=== PATIENT | female | born 1980 | race Caucasian/White ===

== ENCOUNTER 2018-01-29 14:29 | Inpatient (IN) | payer BC ==
[~2018-01-29] VITALS: Ht 157.5 cm; Wt 121.2 kg
[~2018-01-29 14:29] MED LIST: CHLO25 PO; Librium25 MG PO; PRED10 PO; THIA100 PO; Zofran4 MG PO
[2018-01-29 15:17] LABS: Hematocrit 35.6 % (33.0-51.0); Hemoglobin 11.7 g/dL (11.5-16.0); Mean Corpuscular HGB 35.3 pg (26.0-34.0); Mean Corpuscular HGB Conc 32.9 g/dL (31.5-36.5); Mean Corpuscular Volume 108 fL (80-100); Mean Platelet Volume 11.1 fL (9.1-12.4); NRBC ABSOLUTE 0.19 K/mm3 (0.00-0.02); NRBC Auto 0.7 /100 WBC (0.0-0.2); Platelet Count 270 K/mm3 (150-400); RDW Coefficient Variation 18.3 % (11.7-14.2); Red Blood Cell Count 3.31 M/mm3 (3.80-5.20); White Blood Cell Count 28.23 K/mm3 (4.00-11.30)
[2018-01-29 15:49] LABS: BAND PERCENT MAN 14 % (0-8); BASOPHILS PERCENT MAN 0 % (0-2); EOSINOPHILS ABSOLUTE MAN 0.28 K/mm3 (0.00-0.68); EOSINOPHILS PERCENT MAN 1 % (0-6); LYMPHOCYTES ABSOLUTE MAN 1.97 K/mm3 (0.84-5.20); LYMPHOCYTES PERCENT MAN 7 % (21-46); METAMYELOCYTE ABSOLUTE MAN 0.28 K/mm3 (0.00-0.00); METAMYELOCYTE PERCENT MAN 1 % (0-0); MONOCYTES ABSOLUTE MAN 1.97 K/mm3 (0.16-1.47); MONOCYTES PERCENT MAN 7 % (4-13); MYELOCYTE ABSOLUTE MAN 0.28 K/mm3 (0.00-0.00); MYELOCYTE PERCENT MAN 1 % (0-0); NEUTROPHILS ABSOLUTE MAN 23.43 K/mm3 (1.96-9.15); SEG NEUTROPHILS PERCENT MAN 69 % (41-73); TOTAL CELLS COUNTED 100
[2018-01-29 15:51] LABS: Albumin, Blood 1.6 g/dL (3.4-5.0); Albumin/Globulin Ratio 0.3 (0.8-1.8); Bilirubin, Total 10.9 mg/dL (0.1-1.0); Bun/Creatinine Ratio 14.2 (12.0-20.0); Calcium, Blood 8.4 mg/dL (8.5-10.1); Creatinine, Blood 3.95 mg/dL (0.40-1.00); Globulin, Blood 6.1 g/dL (2.2-4.0); Potassium, Blood 5.4 mmol/L (3.5-5.5); Total Protein, Blood 7.7 g/dL (6.4-8.2)
[2018-01-29 18:20] LABS: Ethanol (Alcohol), Blood, Med <3 mg/dL
[2018-01-29 18:25] LABS: Acetaminophen, Random <2.0 ug/mL (10.0-30.0); Salicylate <1.7 mg/dL (2.8-20.0)
[2018-01-29 18:31] LABS: International Normalized Ratio 1.75; Prothrombin Time Results 17.5 Sec (9.7-11.5)
[2018-01-29 19:38] LABS: Source, Urine Clean Catch
[2018-01-29 19:49] LABS: Appearance, Urine Cloudy (Clear); Bilirubin, Urine 3+ (Neg); Blood, Urine 3+ (Neg); Color, Urine Amber (P-Yellow); Glucose Qualitative, Urine Neg (Neg); Ketones, Urine 1+ (Neg); Leukocyte Esterase, Urine 1+ (Neg); Nitrite, Urine Pos (Neg); Protein, Urine 2+ (Neg); Urobilinogen, Urine 3+ (Normal)
[2018-01-29 19:51] LABS: Amorphous Mod (0-Heavy); Bacteria Few /hpf
[2018-01-29 19:54] LABS: Squamous Epithelial Cells Few /hpf (Few); Transitional Epithelial Cells Few /hpf (0-Rare)
[2018-01-29 19:55] LABS: U Amphetamine Screen Not Detected; U Barbituate Screen Not Detected; U Benzodiazapine Screen DETECTED; U Buprenorphine Screen Not Detected; U Cannabinoids Screen DETECTED; U Cocaine Screen Not Detected; U Methadone Screen Not Detected; U Methamphetamine Screen Not Detected; U Opiates Screen Not Detected; U Oxycodone Screen Not Detected; U Phencyclidine Screen Not Detected; U Propoxyphene Screen Not Detected
[2018-01-30 06:46] LABS: Hematocrit 28.7 % (33.0-51.0); Hemoglobin 9.3 g/dL (11.5-16.0); Mean Corpuscular HGB 34.8 pg (26.0-34.0); Mean Corpuscular HGB Conc 32.4 g/dL (31.5-36.5); Mean Corpuscular Volume 108 fL (80-100); Mean Platelet Volume 10.9 fL (9.1-12.4); NRBC ABSOLUTE 0.08 K/mm3 (0.00-0.02); NRBC Auto 0.3 /100 WBC (0.0-0.2); Platelet Count 204 K/mm3 (150-400); RDW Coefficient Variation 18.4 % (11.7-14.2); RDW Standard Deviation 70.5 fL (35.1-46.3); Red Blood Cell Count 2.67 M/mm3 (3.80-5.20); White Blood Cell Count 28.48 K/mm3 (4.00-11.30)
[2018-01-30 07:03] LABS: Albumin, Blood 1.3 g/dL (3.4-5.0); Albumin/Globulin Ratio 0.3 (0.8-1.8); Bilirubin, Total 8.9 mg/dL (0.1-1.0); Bun/Creatinine Ratio 14.3 (12.0-20.0); Calcium, Blood 7.1 mg/dL (8.5-10.1); Creatinine, Blood 3.91 mg/dL (0.40-1.00); Globulin, Blood 4.7 g/dL (2.2-4.0)
[2018-01-30 07:06] LABS: BAND PERCENT MAN 5 % (0-8); BASOPHILS ABSOLUTE MAN 0.28 K/mm3 (0.00-0.23); BASOPHILS PERCENT MAN 1 % (0-2); EOSINOPHILS PERCENT MAN 0 % (0-6); LYMPHOCYTES ABSOLUTE MAN 3.13 K/mm3 (0.84-5.20); LYMPHOCYTES PERCENT MAN 11 % (21-46); METAMYELOCYTE ABSOLUTE MAN 0.28 K/mm3 (0.00-0.00); METAMYELOCYTE PERCENT MAN 1 % (0-0); MONOCYTES ABSOLUTE MAN 1.13 K/mm3 (0.16-1.47); MONOCYTES PERCENT MAN 4 % (4-13); NEUTROPHILS ABSOLUTE MAN 23.63 K/mm3 (1.96-9.15); SEG NEUTROPHILS PERCENT MAN 78 % (41-73); TOTAL CELLS COUNTED 100
[2018-01-30 14:35] LABS: Stool Occult Blood Guaiac 1 Pos (Neg)
[2018-01-30 15:20] LABS: Hematocrit 29.6 % (33.0-51.0)
[2018-01-30 20:57] LABS: Hematocrit 19.6 % (33.0-51.0); Hemoglobin 6.4 g/dL (11.5-16.0); Mean Corpuscular HGB Conc 32.7 g/dL (31.5-36.5); Mean Corpuscular Volume 110 fL (80-100); Mean Platelet Volume 10.6 fL (9.1-12.4); NRBC ABSOLUTE 0.08 K/mm3 (0.00-0.02); NRBC Auto 0.3 /100 WBC (0.0-0.2); Platelet Count 199 K/mm3 (150-400); RDW Coefficient Variation 18.4 % (11.7-14.2); RDW Standard Deviation 72.3 fL (35.1-46.3); Red Blood Cell Count 1.78 M/mm3 (3.80-5.20); White Blood Cell Count 28.62 K/mm3 (4.00-11.30)
[2018-01-30 21:18] LABS: Bun/Creatinine Ratio 16.3 (12.0-20.0); Calcium, Blood 6.2 mg/dL (8.5-10.1); Creatinine, Blood 3.07 mg/dL (0.40-1.00); Potassium, Blood 4.7 mmol/L (3.5-5.5)
[2018-01-31 04:40] LABS: Hematocrit 29.2 % (33.0-51.0); Hemoglobin 9.5 g/dL (11.5-16.0); Mean Corpuscular HGB 34.9 pg (26.0-34.0); Mean Corpuscular HGB Conc 32.5 g/dL (31.5-36.5); Mean Platelet Volume 10.6 fL (9.1-12.4); NRBC Auto 0.3 /100 WBC (0.0-0.2); Platelet Count 202 K/mm3 (150-400); RDW Coefficient Variation 19.5 % (11.7-14.2); RDW Standard Deviation 74.6 fL (35.1-46.3); Red Blood Cell Count 2.72 M/mm3 (3.80-5.20); White Blood Cell Count 31.76 K/mm3 (4.00-11.30)
[2018-01-31 04:49] LABS: Mean Corpuscular Volume 107 fL (80-100)
[2018-01-31 04:59] LABS: Albumin/Globulin Ratio 0.5 (0.8-1.8); Bilirubin, Total 10.3 mg/dL (0.1-1.0); Bun/Creatinine Ratio 16.3 (12.0-20.0); Calcium, Blood 7.3 mg/dL (8.5-10.1); Creatinine, Blood 3.37 mg/dL (0.40-1.00); Globulin, Blood 4.4 g/dL (2.2-4.0); Magnesium, Blood 2.5 mg/dL (1.6-2.4); Potassium, Blood 5.2 mmol/L (3.5-5.5); Total Protein, Blood 6.4 g/dL (6.4-8.2)
[2018-01-31 05:54] LABS: BAND PERCENT MAN 10 % (0-8); BASOPHILS ABSOLUTE MAN 0.31 K/mm3 (0.00-0.23); BASOPHILS PERCENT MAN 1 % (0-2); EOSINOPHILS ABSOLUTE MAN 0.95 K/mm3 (0.00-0.68); EOSINOPHILS PERCENT MAN 3 % (0-6); METAMYELOCYTE ABSOLUTE MAN 0.63 K/mm3 (0.00-0.00); METAMYELOCYTE PERCENT MAN 2 % (0-0); MONOCYTES ABSOLUTE MAN 0.95 K/mm3 (0.16-1.47); MONOCYTES PERCENT MAN 3 % (4-13); MYELOCYTE ABSOLUTE MAN 0.95 K/mm3 (0.00-0.00); MYELOCYTE PERCENT MAN 3 % (0-0); NEUTROPHILS ABSOLUTE MAN 27.94 K/mm3 (1.96-9.15); SEG NEUTROPHILS PERCENT MAN 78 % (41-73); TOTAL CELLS COUNTED 100
[2018-01-31 08:16] LABS: HBSAG SCREEN Negative (Negative); HEP A AB, IGM Negative (Negative); HEP B CORE AB, IGM Negative (Negative); HEP C VIRUS AB <0.1 (0.0-0.9)
[2018-01-31 11:59] LABS: Hematocrit 29.1 % (33.0-51.0); Hemoglobin 9.4 g/dL (11.5-16.0)
[2018-02-01 03:42] LABS: Hematocrit 27.6 % (33.0-51.0); Mean Corpuscular HGB 35.3 pg (26.0-34.0); Mean Corpuscular HGB Conc 32.6 g/dL (31.5-36.5); Mean Corpuscular Volume 108 fL (80-100); Mean Platelet Volume 10.7 fL (9.1-12.4); NRBC ABSOLUTE 0.07 K/mm3 (0.00-0.02); NRBC Auto 0.2 /100 WBC (0.0-0.2); Platelet Count 172 K/mm3 (150-400); RDW Coefficient Variation 19.9 % (11.7-14.2); RDW Standard Deviation 77.1 fL (35.1-46.3); Red Blood Cell Count 2.55 M/mm3 (3.80-5.20); White Blood Cell Count 30.25 K/mm3 (4.00-11.30)
[2018-02-01 03:57] LABS: Albumin, Blood 2.3 g/dL (3.4-5.0); Anion Gap 13 mmol/L (6-16); Blood Urea Nitrogen 53 mg/dL (8-24); Bun/Creatinine Ratio 18.7 (12.0-20.0); CO2, Blood 18 mmol/L (21-32); Calcium, Blood 7.3 mg/dL (8.5-10.1); Chloride, Blood 103 mmol/L (98-108); Creatinine, Blood 2.83 mg/dL (0.40-1.00); Glomerular Filtration Rate 20 (60-); Glucose, Blood 107 mg/dL (70-99); Phosphorus, Blood 4.3 mg/dL (2.5-4.9); Potassium, Blood 4.6 mmol/L (3.5-5.5); Sodium, Blood 134 mmol/L (136-145)
[2018-02-01 04:41] LABS: BAND PERCENT MAN 14 % (0-8); BASOPHILS PERCENT MAN 0 % (0-2); EOSINOPHILS PERCENT MAN 0 % (0-6); LYMPHOCYTES ABSOLUTE MAN 1.81 K/mm3 (0.84-5.20); LYMPHOCYTES PERCENT MAN 6 % (21-46); METAMYELOCYTE PERCENT MAN 1 % (0-0); MONOCYTES ABSOLUTE MAN 1.51 K/mm3 (0.16-1.47); MONOCYTES PERCENT MAN 5 % (4-13); NEUTROPHILS ABSOLUTE MAN 26.62 K/mm3 (1.96-9.15); SEG NEUTROPHILS PERCENT MAN 74 % (41-73); TOTAL CELLS COUNTED 100
[2018-02-01 13:11] LABS: Hematocrit 27.8 % (33.0-51.0)
[2018-02-01 21:23] LABS: Hematocrit 27.4 % (33.0-51.0)
[2018-02-02 05:44] LABS: Hemoglobin 8.7 g/dL (11.5-16.0); Mean Corpuscular HGB 35.2 pg (26.0-34.0); Mean Corpuscular HGB Conc 32.2 g/dL (31.5-36.5); Mean Corpuscular Volume 109 fL (80-100); Mean Platelet Volume 10.8 fL (9.1-12.4); NRBC ABSOLUTE 0.04 K/mm3 (0.00-0.02); NRBC Auto 0.1 /100 WBC (0.0-0.2); Platelet Count 144 K/mm3 (150-400); RDW Coefficient Variation 19.8 % (11.7-14.2); RDW Standard Deviation 77.6 fL (35.1-46.3); Red Blood Cell Count 2.47 M/mm3 (3.80-5.20); White Blood Cell Count 29.23 K/mm3 (4.00-11.30)
[2018-02-02 06:04] LABS: BAND PERCENT MAN 2 % (0-8); BASOPHILS PERCENT MAN 0 % (0-2); EOSINOPHILS PERCENT MAN 0 % (0-6); LYMPHOCYTES ABSOLUTE MAN 3.21 K/mm3 (0.84-5.20); LYMPHOCYTES PERCENT MAN 11 % (21-46); MONOCYTES ABSOLUTE MAN 1.16 K/mm3 (0.16-1.47); MONOCYTES PERCENT MAN 4 % (4-13); NEUTROPHILS ABSOLUTE MAN 24.84 K/mm3 (1.96-9.15); SEG NEUTROPHILS PERCENT MAN 83 % (41-73); TOTAL CELLS COUNTED 100
[2018-02-02 06:11] LABS: Alanine Aminotransfer (ALT/SGP 44 U/L (12-78); Albumin, Blood 2.6 g/dL (3.4-5.0); Albumin/Globulin Ratio 0.6 (0.8-1.8); Alk Phos 225 U/L (50-136); Anion Gap 13 mmol/L (6-16); Aspartate Aminotrans (AST/SGOT 211 U/L (12-37); Bilirubin, Total 12.3 mg/dL (0.1-1.0); Blood Urea Nitrogen 54 mg/dL (8-24); Bun/Creatinine Ratio 22.5 (12.0-20.0); CO2, Blood 19 mmol/L (21-32); Calcium, Blood 7.6 mg/dL (8.5-10.1); Chloride, Blood 106 mmol/L (98-108); Globulin, Blood 4.1 g/dL (2.2-4.0); Glomerular Filtration Rate 24 (60-); Glucose, Blood 88 mg/dL (70-99); Magnesium, Blood 2.2 mg/dL (1.6-2.4); Phosphorus, Blood 4.6 mg/dL (2.5-4.9); Potassium, Blood 4.7 mmol/L (3.5-5.5); Sodium, Blood 138 mmol/L (136-145); Total Protein, Blood 6.7 g/dL (6.4-8.2)
[2018-02-02 11:25] LABS: PCO2 Arterial 49.6 mmHg (35-45); pH Blood Arterial 7.21 (7.35-7.45)
[2018-02-02 14:27] LABS: Base Excess Venous -5.7 mmol/L; Bicarbonate Venous 19.6 mmol/L (24.0-30.0)
[2018-02-02 14:29] LABS: PCO2 Venous 43.4 mmHg (38-42); pH Blood Venous 7.29 (7.34-7.37)
[2018-02-02 14:30] LABS: PO2 Venous 40.1 mmHg (38-42)
[2018-02-02 14:36] LABS: Hematocrit 26.9 % (33.0-51.0); Hemoglobin 8.6 g/dL (11.5-16.0)
[2018-02-02 20:17] LABS: Hematocrit 26.2 % (33.0-51.0); Hemoglobin 8.5 g/dL (11.5-16.0)
[2018-02-03 03:22] LABS: Base Excess Venous -6.5 mmol/L; Bicarbonate Venous 19.4 mmol/L (24.0-30.0); PCO2 Venous 37.2 mmHg (38-42); PO2 Venous 54.9 mmHg (38-42); pH Blood Venous 7.33 (7.34-7.37)
[2018-02-03 03:46] LABS: Hematocrit 26.5 % (33.0-51.0); Hemoglobin 8.7 g/dL (11.5-16.0); Mean Corpuscular HGB 35.4 pg (26.0-34.0); Mean Corpuscular HGB Conc 32.8 g/dL (31.5-36.5); Mean Corpuscular Volume 108 fL (80-100); Mean Platelet Volume 11.1 fL (9.1-12.4); NRBC ABSOLUTE 0.05 K/mm3 (0.00-0.02); NRBC Auto 0.2 /100 WBC (0.0-0.2); Platelet Count 154 K/mm3 (150-400); RDW Coefficient Variation 19.6 % (11.7-14.2); RDW Standard Deviation 75.8 fL (35.1-46.3); Red Blood Cell Count 2.46 M/mm3 (3.80-5.20); White Blood Cell Count 27.48 K/mm3 (4.00-11.30)
[2018-02-03 04:14] LABS: Albumin, Blood 2.6 g/dL (3.4-5.0); Albumin/Globulin Ratio 0.6 (0.8-1.8); Bilirubin, Total 13.9 mg/dL (0.1-1.0); Bun/Creatinine Ratio 26.8 (12.0-20.0); Calcium, Blood 8.1 mg/dL (8.5-10.1); Creatinine, Blood 2.2 mg/dL (0.40-1.00); Globulin, Blood 4.1 g/dL (2.2-4.0); Potassium, Blood 4.5 mmol/L (3.5-5.5); Total Protein, Blood 6.7 g/dL (6.4-8.2)
[2018-02-03 05:00] LABS: BAND PERCENT MAN 5 % (0-8); BASOPHILS PERCENT MAN 0 % (0-2); EOSINOPHILS PERCENT MAN 0 % (0-6); LYMPHOCYTES ABSOLUTE MAN 0.54 K/mm3 (0.84-5.20); LYMPHOCYTES PERCENT MAN 2 % (21-46); METAMYELOCYTE ABSOLUTE MAN 0.82 K/mm3 (0.00-0.00); METAMYELOCYTE PERCENT MAN 3 % (0-0); MONOCYTES ABSOLUTE MAN 1.09 K/mm3 (0.16-1.47); MONOCYTES PERCENT MAN 4 % (4-13); MYELOCYTE ABSOLUTE MAN 0.27 K/mm3 (0.00-0.00); MYELOCYTE PERCENT MAN 1 % (0-0); NEUTROPHILS ABSOLUTE MAN 24.73 K/mm3 (1.96-9.15); SEG NEUTROPHILS PERCENT MAN 85 % (41-73); TOTAL CELLS COUNTED 100
[2018-02-04 03:52] LABS: Hematocrit 28.2 % (33.0-51.0); Hemoglobin 8.8 g/dL (11.5-16.0); Mean Corpuscular HGB 35.3 pg (26.0-34.0); Mean Corpuscular HGB Conc 31.2 g/dL (31.5-36.5); NRBC ABSOLUTE 0.08 K/mm3 (0.00-0.02); NRBC Auto 0.2 /100 WBC (0.0-0.2); Platelet Count 182 K/mm3 (150-400); RDW Coefficient Variation 20.1 % (11.7-14.2); RDW Standard Deviation 82.8 fL (35.1-46.3); Red Blood Cell Count 2.49 M/mm3 (3.80-5.20); White Blood Cell Count 34.28 K/mm3 (4.00-11.30)
[2018-02-04 04:06] LABS: International Normalized Ratio 2.13
[2018-02-04 04:16] LABS: Mean Corpuscular Volume 113 fL (80-100)
[2018-02-04 04:27] LABS: Albumin, Blood 2.6 g/dL (3.4-5.0); Albumin/Globulin Ratio 0.6 (0.8-1.8); Bilirubin, Direct 12.3 mg/dL (0.0-0.3); Bilirubin, Total 15.3 mg/dL (0.1-1.0); Calcium, Blood 8.2 mg/dL (8.5-10.1); Globulin, Blood 4.5 g/dL (2.2-4.0); Potassium, Blood 4.9 mmol/L (3.5-5.5); Total Protein, Blood 7.1 g/dL (6.4-8.2)
[2018-02-04 04:55] LABS: BAND PERCENT MAN 6 % (0-8); BASOPHILS ABSOLUTE MAN 0.34 K/mm3 (0.00-0.23); BASOPHILS PERCENT MAN 1 % (0-2); EOSINOPHILS PERCENT MAN 0 % (0-6); LYMPHOCYTES ABSOLUTE MAN 2.39 K/mm3 (0.84-5.20); LYMPHOCYTES PERCENT MAN 7 % (21-46); METAMYELOCYTE ABSOLUTE MAN 0.68 K/mm3 (0.00-0.00); METAMYELOCYTE PERCENT MAN 2 % (0-0); MONOCYTES ABSOLUTE MAN 0.34 K/mm3 (0.16-1.47); MONOCYTES PERCENT MAN 1 % (4-13); MYELOCYTE ABSOLUTE MAN 0.68 K/mm3 (0.00-0.00); MYELOCYTE PERCENT MAN 2 % (0-0); NEUTROPHILS ABSOLUTE MAN 29.82 K/mm3 (1.96-9.15); SEG NEUTROPHILS PERCENT MAN 81 % (41-73); TOTAL CELLS COUNTED 100
[2018-02-04 06:00] LABS: Base Excess Venous -8.5 mmol/L; Bicarbonate Venous 17.7 mmol/L (24.0-30.0); PCO2 Venous 45.6 mmHg (38-42); pH Blood Venous 7.23 (7.34-7.37)
[2018-02-04 12:12] LABS: PCO2 Arterial 49.2 mmHg (35-45); PO2 Arterial 103 mmHg (80-100); pH Blood Arterial 7.21 (7.35-7.45)
[2018-02-05 04:15] LABS: Hematocrit 28.6 % (33.0-51.0); Hemoglobin 8.6 g/dL (11.5-16.0); Mean Corpuscular HGB 34.8 pg (26.0-34.0); Mean Corpuscular HGB Conc 30.1 g/dL (31.5-36.5); NRBC ABSOLUTE 0.15 K/mm3 (0.00-0.02); NRBC Auto 0.4 /100 WBC (0.0-0.2); Platelet Count 200 K/mm3 (150-400); RDW Coefficient Variation 20.2 % (11.7-14.2); RDW Standard Deviation 85.5 fL (35.1-46.3); Red Blood Cell Count 2.47 M/mm3 (3.80-5.20); White Blood Cell Count 36.14 K/mm3 (4.00-11.30)
[2018-02-05 04:19] LABS: Base Excess Venous -9.6 mmol/L; Bicarbonate Venous 16.7 mmol/L (24.0-30.0); PCO2 Venous 66.7 mmHg (38-42); PO2 Venous 111 mmHg (38-42); pH Blood Venous 7.09 (7.34-7.37)
[2018-02-05 04:35] LABS: Albumin, Blood 2.6 g/dL (3.4-5.0); Albumin/Globulin Ratio 0.6 (0.8-1.8); Bun/Creatinine Ratio 31.2 (12.0-20.0); Calcium, Blood 8.5 mg/dL (8.5-10.1); Creatinine, Blood 2.5 mg/dL (0.40-1.00); Globulin, Blood 4.6 g/dL (2.2-4.0); Magnesium, Blood 2.9 mg/dL (1.6-2.4); Phosphorus, Blood 6.6 mg/dL (2.5-4.9); Potassium, Blood 5.2 mmol/L (3.5-5.5); Total Protein, Blood 7.2 g/dL (6.4-8.2)
[2018-02-05 04:37] LABS: Mean Corpuscular Volume 116 fL (80-100)
[2018-02-05 05:22] LABS: BAND PERCENT MAN 2 % (0-8); BASOPHILS ABSOLUTE MAN 0.36 K/mm3 (0.00-0.23); BASOPHILS PERCENT MAN 1 % (0-2); EOSINOPHILS ABSOLUTE MAN 0.72 K/mm3 (0.00-0.68); EOSINOPHILS PERCENT MAN 2 % (0-6); LYMPHOCYTES PERCENT MAN 5 % (21-46); METAMYELOCYTE ABSOLUTE MAN 0.72 K/mm3 (0.00-0.00); METAMYELOCYTE PERCENT MAN 2 % (0-0); MONOCYTES ABSOLUTE MAN 1.08 K/mm3 (0.16-1.47); MONOCYTES PERCENT MAN 3 % (4-13); MYELOCYTE ABSOLUTE MAN 0.36 K/mm3 (0.00-0.00); MYELOCYTE PERCENT MAN 1 % (0-0); NEUTROPHILS ABSOLUTE MAN 31.08 K/mm3 (1.96-9.15); SEG NEUTROPHILS PERCENT MAN 84 % (41-73); TOTAL CELLS COUNTED 100
[2018-02-05 09:26] LABS: Base Excess Venous -8.1 mmol/L; PCO2 Venous 53.4 mmHg (38-42); PO2 Venous 68.5 mmHg (38-42); pH Blood Venous 7.19 (7.34-7.37)
[2018-02-05 13:35] LABS: Base Excess Venous -7.1 mmol/L; PCO2 Venous 33.3 mmHg (38-42); PO2 Venous 56.4 mmHg (38-42); pH Blood Venous 7.35 (7.34-7.37)
[2018-02-05 13:49] LABS: Appearance, Urine Turbid (Clear); Blood, Urine 5+ (Neg); Color, Urine Yellow (P-Yellow); Glucose Qualitative, Urine Neg (Neg); Ketones, Urine 1+ (Neg); Leukocyte Esterase, Urine 2+ (Neg); Nitrite, Urine Pos (Neg); Protein, Urine 3+ (Neg); Specific Gravity, Urine 1.025 (1.003-1.022); Urobilinogen, Urine 1+ (Normal)
[2018-02-05 13:53] LABS: Bilirubin, Urine 3+ (Neg)
[2018-02-05 13:56] LABS: Bacteria Many /hpf; Squamous Epithelial Cells Mod /hpf (Few)
[2018-02-05 13:57] LABS: Yeast/Fungi Urine Mod /hpf
[2018-02-05 18:16] LABS: Albumin, Blood 2.6 g/dL (3.4-5.0); Anion Gap 13 mmol/L (6-16); Blood Urea Nitrogen 89 mg/dL (8-24); Bun/Creatinine Ratio 30.4 (12.0-20.0); CO2, Blood 20 mmol/L (21-32); CPK Creatine Kinase 12 U/L (26-193); Calcium, Blood 8.6 mg/dL (8.5-10.1); Chloride, Blood 118 mmol/L (98-108); Creatinine, Blood 2.93 mg/dL (0.40-1.00); Glomerular Filtration Rate 19 (60-); Glucose, Blood 124 mg/dL (70-99); Phosphorus, Blood 3.9 mg/dL (2.5-4.9); Potassium, Blood 3.9 mmol/L (3.5-5.5); Sodium, Blood 151 mmol/L (136-145)
[2018-02-06 03:36] LABS: Hematocrit 23.8 % (33.0-51.0); Hemoglobin 7.6 g/dL (11.5-16.0); Mean Corpuscular HGB 35.8 pg (26.0-34.0); Mean Corpuscular HGB Conc 31.9 g/dL (31.5-36.5); Mean Platelet Volume 11.3 fL (9.1-12.4); NRBC ABSOLUTE 0.16 K/mm3 (0.00-0.02); NRBC Auto 0.6 /100 WBC (0.0-0.2); Platelet Count 169 K/mm3 (150-400); RDW Coefficient Variation 20.5 % (11.7-14.2); RDW Standard Deviation 82.7 fL (35.1-46.3); Red Blood Cell Count 2.12 M/mm3 (3.80-5.20); White Blood Cell Count 28.34 K/mm3 (4.00-11.30)
[2018-02-06 03:37] LABS: Mean Corpuscular Volume 112 fL (80-100)
[2018-02-06 03:53] LABS: Alanine Aminotransfer (ALT/SGP 76 U/L (12-78); Albumin, Blood 2.7 g/dL (3.4-5.0); Albumin/Globulin Ratio 0.7 (0.8-1.8); Alk Phos 215 U/L (50-136); Anion Gap 11 mmol/L (6-16); Aspartate Aminotrans (AST/SGOT 288 U/L (12-37); Bilirubin, Direct 10.6 mg/dL (0.0-0.3); Bilirubin, Indirect 2.2 mg/dL (0.1-0.7); Bilirubin, Total 12.8 mg/dL (0.1-1.0); Blood Urea Nitrogen 95 mg/dL (8-24); Bun/Creatinine Ratio 29.9 (12.0-20.0); CO2, Blood 20 mmol/L (21-32); CPK Creatine Kinase 14 U/L (26-193); Calcium, Blood 8.6 mg/dL (8.5-10.1); Chloride, Blood 120 mmol/L (98-108); Creatinine, Blood 3.18 mg/dL (0.40-1.00); Glomerular Filtration Rate 17 (60-); Glucose, Blood 125 mg/dL (70-99); Magnesium, Blood 2.7 mg/dL (1.6-2.4); Phosphorus, Blood 3.2 mg/dL (2.5-4.9); Potassium, Blood 3.9 mmol/L (3.5-5.5); Sodium, Blood 151 mmol/L (136-145); Total Protein, Blood 6.7 g/dL (6.4-8.2)
[2018-02-06 04:54] LABS: PCO2 Arterial 37.7 mmHg (35-45); PO2 Arterial 81.7 mmHg (80-100); pH Blood Arterial 7.31 (7.35-7.45)
[2018-02-06 05:05] LABS: BAND PERCENT MAN 3 % (0-8); BASOPHILS ABSOLUTE MAN 0.28 K/mm3 (0.00-0.23); BASOPHILS PERCENT MAN 1 % (0-2); EOSINOPHILS ABSOLUTE MAN 0.56 K/mm3 (0.00-0.68); EOSINOPHILS PERCENT MAN 2 % (0-6); LYMPHOCYTES ABSOLUTE MAN 1.41 K/mm3 (0.84-5.20); LYMPHOCYTES PERCENT MAN 5 % (21-46); METAMYELOCYTE ABSOLUTE MAN 0.56 K/mm3 (0.00-0.00); METAMYELOCYTE PERCENT MAN 2 % (0-0); MONOCYTES ABSOLUTE MAN 1.98 K/mm3 (0.16-1.47); MONOCYTES PERCENT MAN 7 % (4-13); NEUTROPHILS ABSOLUTE MAN 23.52 K/mm3 (1.96-9.15); SEG NEUTROPHILS PERCENT MAN 80 % (41-73); TOTAL CELLS COUNTED 100
[2018-02-07 03:44] LABS: Base Excess Venous -10.2 mmol/L; Bicarbonate Venous 16.8 mmol/L (24.0-30.0); PCO2 Venous 34.1 mmHg (38-42); PO2 Venous 104 mmHg (38-42); pH Blood Venous 7.29 (7.34-7.37)
[2018-02-07 03:50] LABS: Hematocrit 23.4 % (33.0-51.0); Hemoglobin 7.2 g/dL (11.5-16.0); Mean Corpuscular HGB 34.6 pg (26.0-34.0); Mean Corpuscular HGB Conc 30.8 g/dL (31.5-36.5); Mean Corpuscular Volume 113 fL (80-100); Mean Platelet Volume 11.6 fL (9.1-12.4); NRBC ABSOLUTE 0.13 K/mm3 (0.00-0.02); NRBC Auto 0.4 /100 WBC (0.0-0.2); Platelet Count 172 K/mm3 (150-400); RDW Coefficient Variation 20.5 % (11.7-14.2); RDW Standard Deviation 81.6 fL (35.1-46.3); Red Blood Cell Count 2.08 M/mm3 (3.80-5.20); White Blood Cell Count 29.44 K/mm3 (4.00-11.30)
[2018-02-07 04:03] LABS: International Normalized Ratio 1.85; Prothrombin Time Results 18.4 Sec (9.7-11.5)
[2018-02-07 04:04] LABS: Albumin, Blood 2.8 g/dL (3.4-5.0); Albumin/Globulin Ratio 0.7 (0.8-1.8); Bilirubin, Total 12.4 mg/dL (0.1-1.0); Bun/Creatinine Ratio 27.2 (12.0-20.0); Calcium, Blood 8.1 mg/dL (8.5-10.1); Creatinine, Blood 3.83 mg/dL (0.40-1.00); Globulin, Blood 3.9 g/dL (2.2-4.0); Potassium, Blood 4.4 mmol/L (3.5-5.5); Total Protein, Blood 6.7 g/dL (6.4-8.2)
[2018-02-07 04:16] LABS: BAND PERCENT MAN 7 % (0-8); BASOPHILS ABSOLUTE MAN 0.29 K/mm3 (0.00-0.23); BASOPHILS PERCENT MAN 1 % (0-2); EOSINOPHILS ABSOLUTE MAN 0.29 K/mm3 (0.00-0.68); EOSINOPHILS PERCENT MAN 1 % (0-6); MONOCYTES ABSOLUTE MAN 0.29 K/mm3 (0.16-1.47); MONOCYTES PERCENT MAN 1 % (4-13); MYELOCYTE ABSOLUTE MAN 0.58 K/mm3 (0.00-0.00); MYELOCYTE PERCENT MAN 2 % (0-0); TOTAL CELLS COUNTED 100
[2018-02-07 04:17] LABS: LYMPHOCYTES ABSOLUTE MAN 0.29 K/mm3 (0.84-5.20); LYMPHOCYTES PERCENT MAN 1 % (21-46); NEUTROPHILS ABSOLUTE MAN 27.67 K/mm3 (1.96-9.15); SEG NEUTROPHILS PERCENT MAN 87 % (41-73)
[2018-02-08 03:32] LABS: Hematocrit 24.2 % (33.0-51.0); Hemoglobin 7.4 g/dL (11.5-16.0); Mean Corpuscular HGB 35.2 pg (26.0-34.0); Mean Corpuscular HGB Conc 30.6 g/dL (31.5-36.5); Mean Corpuscular Volume 115 fL (80-100); Mean Platelet Volume 11.6 fL (9.1-12.4); NRBC ABSOLUTE 0.23 K/mm3 (0.00-0.02); NRBC Auto 0.7 /100 WBC (0.0-0.2); Platelet Count 156 K/mm3 (150-400); RDW Coefficient Variation 20.5 % (11.7-14.2); RDW Standard Deviation 86.5 fL (35.1-46.3); White Blood Cell Count 34.71 K/mm3 (4.00-11.30)
[2018-02-08 03:50] LABS: Albumin/Globulin Ratio 0.7 (0.8-1.8); BAND PERCENT MAN 10 % (0-8); BASOPHILS PERCENT MAN 0 % (0-2); Bilirubin, Total 12.6 mg/dL (0.1-1.0); Bun/Creatinine Ratio 26.7 (12.0-20.0); Calcium, Blood 7.9 mg/dL (8.5-10.1); Creatinine, Blood 4.34 mg/dL (0.40-1.00); EOSINOPHILS ABSOLUTE MAN 0.69 K/mm3 (0.00-0.68); EOSINOPHILS PERCENT MAN 2 % (0-6); Globulin, Blood 4.3 g/dL (2.2-4.0); LYMPHOCYTES ABSOLUTE MAN 1.04 K/mm3 (0.84-5.20); LYMPHOCYTES PERCENT MAN 3 % (21-46); MONOCYTES ABSOLUTE MAN 2.77 K/mm3 (0.16-1.47); MONOCYTES PERCENT MAN 8 % (4-13); Magnesium, Blood 2.7 mg/dL (1.6-2.4); NEUTROPHILS ABSOLUTE MAN 30.19 K/mm3 (1.96-9.15); Phosphorus, Blood 4.1 mg/dL (2.5-4.9); Potassium, Blood 4.8 mmol/L (3.5-5.5); SEG NEUTROPHILS PERCENT MAN 77 % (41-73); TOTAL CELLS COUNTED 100; Total Protein, Blood 7.3 g/dL (6.4-8.2)
[2018-02-08 03:53] LABS: International Normalized Ratio 1.73; Prothrombin Time Results 17.3 Sec (9.7-11.5)
[2018-02-08 04:54] LABS: PCO2 Arterial 44.7 mmHg (35-45); PO2 Arterial 75 mmHg (80-100); pH Blood Arterial 7.17 (7.35-7.45)
[2018-02-09 00:11] LABS: HBSAG SCREEN Negative (Negative); HEP A AB, IGM Negative (Negative); HEP B CORE AB, IGM Negative (Negative); HEP C VIRUS AB <0.1 (0.0-0.9)
[2018-02-09 03:17] LABS: Hematocrit 22.9 % (33.0-51.0); Hemoglobin 7.4 g/dL (11.5-16.0); Mean Corpuscular HGB 35.9 pg (26.0-34.0); Mean Corpuscular HGB Conc 32.3 g/dL (31.5-36.5); NRBC ABSOLUTE 0.55 K/mm3 (0.00-0.02); NRBC Auto 1.6 /100 WBC (0.0-0.2); Platelet Count 150 K/mm3 (150-400); RDW Coefficient Variation 21.1 % (11.7-14.2); RDW Standard Deviation 80.2 fL (35.1-46.3); Red Blood Cell Count 2.06 M/mm3 (3.80-5.20); White Blood Cell Count 33.71 K/mm3 (4.00-11.30)
[2018-02-09 03:20] LABS: Mean Corpuscular Volume 111 fL (80-100)
[2018-02-09 03:37] LABS: Alanine Aminotransfer (ALT/SGP 56 U/L (12-78); Albumin, Blood 2.8 g/dL (3.4-5.0); Albumin/Globulin Ratio 0.7 (0.8-1.8); Alk Phos 161 U/L (50-136); Anion Gap 14 mmol/L (6-16); Aspartate Aminotrans (AST/SGOT 196 U/L (12-37); Bilirubin, Direct 9.9 mg/dL (0.0-0.3); Bilirubin, Total 11.9 mg/dL (0.1-1.0); Blood Urea Nitrogen 87 mg/dL (8-24); Bun/Creatinine Ratio 23.8 (12.0-20.0); CO2, Blood 23 mmol/L (21-32); Chloride, Blood 105 mmol/L (98-108); Creatinine, Blood 3.66 mg/dL (0.40-1.00); Globulin, Blood 3.9 g/dL (2.2-4.0); Glomerular Filtration Rate 15 (60-); Glucose, Blood 148 mg/dL (70-99); Magnesium, Blood 2.4 mg/dL (1.6-2.4); Phosphorus, Blood 2.8 mg/dL (2.5-4.9); Potassium, Blood 3.7 mmol/L (3.5-5.5); Sodium, Blood 142 mmol/L (136-145); Total Protein, Blood 6.7 g/dL (6.4-8.2)
[2018-02-09 03:42] LABS: BAND PERCENT MAN 10 % (0-8); BASOPHILS ABSOLUTE MAN 0.33 K/mm3 (0.00-0.23); BASOPHILS PERCENT MAN 1 % (0-2); EOSINOPHILS ABSOLUTE MAN 0.33 K/mm3 (0.00-0.68); EOSINOPHILS PERCENT MAN 1 % (0-6); LYMPHOCYTES ABSOLUTE MAN 2.02 K/mm3 (0.84-5.20); LYMPHOCYTES PERCENT MAN 6 % (21-46); METAMYELOCYTE ABSOLUTE MAN 0.33 K/mm3 (0.00-0.00); METAMYELOCYTE PERCENT MAN 1 % (0-0); MONOCYTES ABSOLUTE MAN 1.01 K/mm3 (0.16-1.47); MONOCYTES PERCENT MAN 3 % (4-13); NEUTROPHILS ABSOLUTE MAN 29.66 K/mm3 (1.96-9.15); SEG NEUTROPHILS PERCENT MAN 78 % (41-73); TOTAL CELLS COUNTED 100
[2018-02-09 04:36] LABS: PCO2 Arterial 43.4 mmHg (35-45); PO2 Arterial 65.2 mmHg (80-100); pH Blood Arterial 7.34 (7.35-7.45)
[2018-02-09 14:38] LABS: Hematocrit 25.8 % (33.0-51.0); Hemoglobin 8.3 g/dL (11.5-16.0)
[2018-02-09 16:07] LABS: VARICELLA ZOSTER IGG 276 index (Immune >165)
== END 2018-02-09 17:10 | disposition short-term general hospital (02) | DRG 870 ==
LOC: ER 14:29 → ERHOLD 20:41 → ICUW 20:41
PROVIDERS: Emergency Medicine; Family Medicine; Hospitalist; Internal Medicine; Internal Medicine Critical Care Medicine; Internal Medicine Gastroenterology; Internal Medicine Pulmonary Disease
PROC: 30233N1 Transfusion of Nonautologous Red Blood Cells into Peripheral Vein, Percutaneous Approach (ICD-10-PCS; principal; 2018-01-30)
PROC: 3E033XZ Introduction of Vasopressor into Peripheral Vein, Percutaneous Approach (ICD-10-PCS; 2018-01-31)
PROC: 5A09357 Assistance with Respiratory Ventilation, Less than 24 Consecutive Hours, Continuous Positive Airway Pressure (ICD-10-PCS; 2018-02-02)
PROC: 0BH18EZ Insertion of Endotracheal Airway into Trachea, Via Natural or Artificial Opening Endoscopic (ICD-10-PCS; 2018-02-05)
PROC: 5A1955Z Respiratory Ventilation, Greater than 96 Consecutive Hours (ICD-10-PCS; 2018-02-05)
PROC: 05HM33Z Insertion of Infusion Device into Right Internal Jugular Vein, Percutaneous Approach (ICD-10-PCS; 2018-02-05)
PROC: 5A1D70Z Performance of Urinary Filtration, Intermittent, Less than 6 Hours Per Day (ICD-10-PCS; 2018-02-08)
DX: A41.9 Sepsis, unspecified organism (principal); K76.7 Hepatorenal syndrome; G92 Toxic encephalopathy; J96.02 Acute respiratory failure with hypercapnia; N17.0 Acute kidney failure with tubular necrosis; J96.01 Acute respiratory failure with hypoxia; K72.01 Acute and subacute hepatic failure with coma; F10.239 Alcohol dependence with withdrawal, unspecified; E87.1 Hypo-osmolality and hyponatremia; N39.0 Urinary tract infection, site not specified; E46 Unspecified protein-calorie malnutrition; Z68.41 Body mass index [BMI] 40.0-44.9, adult; E87.0 Hyperosmolality and hypernatremia; E87.2 Acidosis; R65.20 Severe sepsis without septic shock; K70.10 Alcoholic hepatitis without ascites; Z87.891 Personal history of nicotine dependence; I95.9 Hypotension, unspecified; E66.01 Morbid (severe) obesity due to excess calories; F32.9 Major depressive disorder, single episode, unspecified; E87.70 Fluid overload, unspecified
CPT/HCPCS: 31500; 31720; 36415; 36430; 36556; 36569; 36600; 51702; 70450; 71045; 71046; 76705; 76770; 80048; 80053; 80069; 80074; 80076; 81001; 81025; 82140; 82272; 82550; 82728; 82803; 82947; 83516; 83540; 83550; 83605; 83735; 84100; 84300; 85014; 85018; 85025; 85027; 85610; 85730; 86038; 86694; 86787; 86850; 86900; 86901; 86923; 87040; 87070; 87086; 87205; 87493; 93975; 94002; 94003; 94660; 94762; 96361; 96365; 96366; 96375; 97110; 97162; 97166; 97530; 99285-25; C1751; C1752; C9113; G0480; G8978; G8979; G8987; G8988; J0295; J0696; J0881; J1940; J2060; J3010; J3370; J3411; J3430; J7030; J7040; J7050; J7060; J7070; J7120; P9016; P9041

== ENCOUNTER 2018-10-23 09:52 | Day surgery (SDC) | payer BC ==
[~2018-10-23] VITALS: Ht 160 cm; Wt 78.0 kg
[~2018-10-23 09:52] MED LIST changes: +CELCEPT PO; +FLUC100 PO; +LEVSOD50 PO; +TACR1 PO
--- NOTE | 2018-10-23 11:39 | NUR ---
PT ARRIVED TO RECOVERY POST PROCEDURE. PT IS AWAKE AND ANSWERING QUESTIONS. PT DENIES PAIN OR DISCOMFORT, SOB OR NAUSEA. PT TAKING SIPS OF H2O MONITOR SB WITH 1ST DEGREE 50'S, B/P 143/63, SPO2 92% RA. L GROIN SITE NO SWELLING/HEMATOMA, TEGADERM DRSG C,D,I. R DP SITE NO SWELLING/HEMATOMA, CHARLES DRSG-DRAINAGE MAPPED. RLE PULES: DP 2+ AND PT 1+. PT'S FAMILY AT BEDSIDE, ATTENTIVE.
--- NOTE | 2018-10-23 12:14 | NUR ---
PT TO RECOVERY POST PROCEDURE. PT IS AWAKE AND ANSWERING QUESTIONS. PT REPORTS MIN DISCOMFORT AT R CHEST PERM CATH REMOVAL SITE 03/25; DENIES THE NEED FOR MEDICATION. PT DENIES SOB OR NAUSEA. MONITOR SR 80'S, B/P 138/84, SPO2 98% RA. R CHEST PERM CATH REMOVAL SITE, MIN SWELLING, NO HEMATOMA, STERISTRIP AND TEGADERM DRSG INTACT; 5LB SANDBAG IN PLACE. PT'S MOM AT BEDSIDE, ATTENTIVE.
== END 2018-10-23 12:45 | disposition home or self-care (01) ==
LOC: MHTC 09:52
DX: Z49.01 Encounter for fitting and adjustment of extracorporeal dialysis catheter (principal); N18.6 End stage renal disease; D63.1 Anemia in chronic kidney disease; Z87.891 Personal history of nicotine dependence; Z79.899 Other long term (current) drug therapy
CPT/HCPCS: 36589; J7040

== ENCOUNTER 2019-06-24 16:30 | Day surgery (SDC) | payer BC ==
[2019-06-24] MEDS ORDERED: ACETAMINOPHEN500 MG PO (16:52)
[2019-06-24] MEDS ORDERED: Aspir 8181 MG PO (16:53)
[2019-06-24] MEDS ORDERED: PANT40 PO (16:54)
[2019-06-24] MEDS ORDERED: PRED5 PO (16:54)
[2019-06-24] MEDS ORDERED: SULTRIDS PO (16:54)
[2019-06-24] MEDS ORDERED: VITAMIN D350 MCG PO (16:55)
== END 2019-06-24 17:52 | disposition home or self-care (01) ==
LOC: ATC 16:30
DX: N17.9 Acute kidney failure, unspecified (principal); N18.9 Chronic kidney disease, unspecified; Z94.0 Kidney transplant status; Z94.4 Liver transplant status; Z79.899 Other long term (current) drug therapy; Z79.52 Long term (current) use of systemic steroids; Z79.82 Long term (current) use of aspirin
CPT/HCPCS: 96360; J7030

== ENCOUNTER 2019-07-01 20:07 | Inpatient (IN) | payer BC ==
[~2019-07-01] VITALS: Ht 157.5 cm; Wt 76.4 kg
[~2019-07-01 20:07] MED LIST changes: +ACETAMINOPHEN500 MG PO; +Aspir 8181 MG PO; +EUTHYROX50 MCG PO; -LEVSOD50 PO; +PANT40 PO; +PRED5 PO; +SULTRIDS PO; -TACR1 PO; +TACROLIMUS0.5 MG PO; +VITAMIN D350 MCG PO
[2019-07-01 21:12] LABS: BASOPHILS ABSOLUTE AUTO 0.02 K/mm3 (0.00-0.23); BASOPHILS PERCENT AUTO 0 % (0-2); EOSINOPHILS ABSOLUTE AUTO 0.02 K/mm3 (0.00-0.68); EOSINOPHILS PERCENT AUTO 0 % (0-6); Hematocrit 37.9 % (33.0-51.0); Hemoglobin 11.7 g/dL (11.5-16.0); IMMATURE GRAN ABSOLUTE AUTO 0.61 K/mm3 (0.00-0.10); IMMATURE GRAN PERCENT AUTO 8 % (0-1); LYMPHOCYTES ABSOLUTE AUTO 0.39 K/mm3 (0.84-5.20); LYMPHOCYTES PERCENT AUTO 5 % (21-46); MONOCYTES ABSOLUTE AUTO 0.84 K/mm3 (0.16-1.47); MONOCYTES PERCENT AUTO 11 % (4-13); Mean Corpuscular HGB Conc 30.9 g/dL (31.5-36.5); Mean Corpuscular Volume 94 fL (80-100); Mean Platelet Volume 9.8 fL (9.1-12.4); NEUTROPHILS ABSOLUTE AUTO 5.78 K/mm3 (1.96-9.15); NEUTROPHILS PERCENT AUTO 75 % (41-73); Platelet Count 164 K/mm3 (150-400); RDW Coefficient Variation 12.1 % (11.7-14.2); RDW Standard Deviation 42.1 fL (35.1-46.3); Red Blood Cell Count 4.03 M/mm3 (3.80-5.20); White Blood Cell Count 7.66 K/mm3 (4.00-11.30)
[2019-07-01 21:29] LABS: BAND PERCENT MAN 7 % (0-8); BASOPHILS PERCENT MAN 0 % (0-2); EOSINOPHILS PERCENT MAN 0 % (0-6); LYMPHOCYTES ABSOLUTE MAN 0.07 K/mm3 (0.84-5.20); LYMPHOCYTES PERCENT MAN 1 % (21-46); MONOCYTES ABSOLUTE MAN 0.68 K/mm3 (0.16-1.47); MONOCYTES PERCENT MAN 9 % (4-13); NEUTROPHILS ABSOLUTE MAN 6.89 K/mm3 (1.96-9.15); SEG NEUTROPHILS PERCENT MAN 83 % (41-73); TOTAL CELLS COUNTED 100
[2019-07-01 21:30] LABS: Albumin, Blood 3.8 g/dL (3.4-5.0); Albumin/Globulin Ratio 1.1 (0.8-1.8); Bilirubin, Total 0.5 mg/dL (0.1-1.0); Bun/Creatinine Ratio 15.6 (12.0-20.0); Calcium, Blood 8.4 mg/dL (8.5-10.1); Creatinine, Blood 1.99 mg/dL (0.40-1.00); Globulin, Blood 3.5 g/dL (2.2-4.0); Magnesium, Blood 1.5 mg/dL (1.6-2.4); Potassium, Blood 4.2 mmol/L (3.5-5.5); Total Protein, Blood 7.3 g/dL (6.4-8.2)
[2019-07-01] MEDS ORDERED: MYCOPHENOLATE250 MG PO (21:39)
[2019-07-01] MEDS ORDERED: PRED5 PO (21:39)
[2019-07-01] MEDS ORDERED: VALGANCICLOVIR450 MG PO (21:40)
[2019-07-01] MEDS ORDERED: SODBIC650 PO (21:51)
[2019-07-01 22:50] LABS: Source, Urine Catheter
[2019-07-01 22:52] LABS: Appearance, Urine Clear (Clear); Bilirubin, Urine Neg (Neg); Blood, Urine 2+ (Neg); Color, Urine Yellow (P-Yellow); Glucose Qualitative, Urine Neg (Neg); Ketones, Urine Neg (Neg); Leukocyte Esterase, Urine 1+ (Neg); Nitrite, Urine Neg (Neg); Protein, Urine 2+ (Neg); Specific Gravity, Urine 1.015 (1.003-1.022); Urobilinogen, Urine NORM (Normal)
[2019-07-01 23:01] LABS: Amorphous Light (0-Heavy); Bacteria Many /hpf; Mucus Light (0-Heavy); Red Blood Cells, Urine 0-2 /hpf (0-2); Squamous Epithelial Cells Few /hpf (Few)
--- NOTE | 2019-07-02 00:15 | NUR ---
CALLED DR RODRIGUEZ'S ANSWERING SERVICE AND LEFT MESSAGE FOR AM FOR CONSULT.
--- NOTE | 2019-07-02 00:25 | NUR ---
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 CXR ABD CT GI panel & UA done in ER. PT has hx of renal & Liver transplant done 2019 in antirejection rx & sees nephrology who sent PT to ER, DR Black. Will be OBS PT on Tele monitor, full code. Await admission
[2019-07-02 01:09] LABS: Adenovirus F 40/41 Not Detected (NOT DETECT); Astrovirus Not Detected (NOT DETECT); Campylobacter Sp Not Detected (NOT DETECT); Cryptosporidium Not Detected (NOT DETECT); Cyclospora Cayetanensis Not Detected (NOT DETECT); E. Coli O157 Not Detected (NOT DETECT); Entamoeba Histolytica Not Detected (NOT DETECT); Enteroaggregative E. coli-EAEC Not Detected (NOT DETECT); Enteropathogenic E. coli-EPEC Not Detected (NOT DETECT); Enterotoxigenic E. coli-ETEC Not Detected (NOT DETECT); Giardia Lamblia Not Detected (NOT DETECT); Norovirus GI/GII Not Detected (NOT DETECT); Plesiomonas Shigelloides Not Detected (NOT DETECT); Rotavirus A Not Detected (NOT DETECT); Salmonella Sp Not Detected (NOT DETECT); Sapovirus Not Detected (NOT DETECT); Shiga Toxin-prod E. coli-STEC Not Detected (NOT DETECT); Shigella/Enteroin E. coli-EIEC Not Detected (NOT DETECT); Vibrio Cholerae Not Detected (NOT DETECT); Vibrio Sp Not Detected (NOT DETECT); Yersinia Enterocolitica Not Detected (NOT DETECT)
--- NOTE | 2019-07-02 04:36 | NUR ---
39 year old Female with hx of reanal & liver transplant in 2019 admitted with fever & rule out covid 19 rapid test negative. UA positive for UTI C & S pending. PT recently had changed to her antirejection, post transplant medications as per updated Med rec. PT works in [employer] dept at [employer] 18 years & recently took leave of absence due to to fever. Diarrhea & dry heaves started yesterday at home. GI panel negative. HAd abd ct & chest xray in ER. ABD US 06/25/19. Has card from [facility] to call if admitted. MINERAL RESOURCES INSPECTOR Nadir called night service to inform. PT up indep in rooms without complaints.
[2019-07-02 08:08] LABS: Hematocrit 34.4 % (33.0-51.0); Hemoglobin 10.7 g/dL (11.5-16.0); Mean Corpuscular HGB 29.3 pg (26.0-34.0); Mean Corpuscular HGB Conc 31.1 g/dL (31.5-36.5); Mean Corpuscular Volume 94 fL (80-100); Mean Platelet Volume 10.1 fL (9.1-12.4); Platelet Count 147 K/mm3 (150-400); RDW Coefficient Variation 12.4 % (11.7-14.2); RDW Standard Deviation 43.2 fL (35.1-46.3); Red Blood Cell Count 3.65 M/mm3 (3.80-5.20); White Blood Cell Count 7.15 K/mm3 (4.00-11.30)
[2019-07-02 08:26] LABS: Albumin, Blood 3.2 g/dL (3.4-5.0); Anion Gap 10 mmol/L (6-16); Blood Urea Nitrogen 26 mg/dL (8-24); Bun/Creatinine Ratio 14.4 (12.0-20.0); CO2, Blood 16 mmol/L (21-32); Calcium, Blood 8.1 mg/dL (8.5-10.1); Chloride, Blood 109 mmol/L (98-108); Glomerular Filtration Rate 33 (60-); Glucose, Blood 99 mg/dL (70-99); Phosphorus, Blood 2.5 mg/dL (2.5-4.9); Sodium, Blood 135 mmol/L (136-145)
[2019-07-02 08:32] LABS: BAND PERCENT MAN 4 % (0-8); BASOPHILS PERCENT MAN 0 % (0-2); EOSINOPHILS PERCENT MAN 0 % (0-6); LYMPHOCYTES ABSOLUTE MAN 0.35 K/mm3 (0.84-5.20); LYMPHOCYTES PERCENT MAN 5 % (21-46); MONOCYTES ABSOLUTE MAN 0.92 K/mm3 (0.16-1.47); MONOCYTES PERCENT MAN 13 % (4-13); NEUTROPHILS ABSOLUTE MAN 5.86 K/mm3 (1.96-9.15); SEG NEUTROPHILS PERCENT MAN 78 % (41-73); TOTAL CELLS COUNTED 100
[2019-07-02 08:39] LABS: Albumin, Blood 3.3 g/dL (3.4-5.0); Bilirubin, Total 0.3 mg/dL (0.1-1.0); Bun/Creatinine Ratio 14.7 (12.0-20.0); Calcium, Blood 8.1 mg/dL (8.5-10.1); Creatinine, Blood 1.77 mg/dL (0.40-1.00); Globulin, Blood 3.3 g/dL (2.2-4.0); Total Protein, Blood 6.6 g/dL (6.4-8.2)
--- NOTE | 2019-07-02 17:20 | NUR ---
ALERT. ORIENTED. COOPERATIVE. UNLABORED RESPIRATIONS. DENIES PAIN. HAS SEEN PATIENT. POOR APPETITE. DENIES PAIN. TM
--- NOTE | 2019-07-03 02:46 | NUR ---
39 year old Female with hx of rt kidney transplant in 2019 & liver transplant in 2019 continues with intermittant fevers & has poor appetite & has nausea & vomiting despite antiemetic zofran. DR WINSTON notified & order to tx with IV reglan Q 6 hours PRN N & V and also forexcederine migrane 1 to 2 tabs Q 6 hours PRN migrane headache. Covid 19 rapid test negative, UA positive, C & S pending. ABD CT results reviewed RT kidney had ? possible pylonephritis. . Will administer antiemetic & excederine migrane PRN . Continues on bicarb IV at 100 ml hr. Urine light yellow slightly cloudy.
[2019-07-03 05:22] LABS: BASOPHILS ABSOLUTE AUTO 0.02 K/mm3 (0.00-0.23); BASOPHILS PERCENT AUTO 0 % (0-2); EOSINOPHILS ABSOLUTE AUTO 0.11 K/mm3 (0.00-0.68); EOSINOPHILS PERCENT AUTO 2 % (0-6); Hematocrit 31.5 % (33.0-51.0); Hemoglobin 9.7 g/dL (11.5-16.0); IMMATURE GRAN ABSOLUTE AUTO 0.12 K/mm3 (0.00-0.10); IMMATURE GRAN PERCENT AUTO 3 % (0-1); LYMPHOCYTES ABSOLUTE AUTO 0.47 K/mm3 (0.84-5.20); LYMPHOCYTES PERCENT AUTO 10 % (21-46); MONOCYTES ABSOLUTE AUTO 0.72 K/mm3 (0.16-1.47); MONOCYTES PERCENT AUTO 15 % (4-13); Mean Corpuscular HGB Conc 30.8 g/dL (31.5-36.5); Mean Corpuscular Volume 94 fL (80-100); Mean Platelet Volume 9.8 fL (9.1-12.4); NEUTROPHILS ABSOLUTE AUTO 3.38 K/mm3 (1.96-9.15); NEUTROPHILS PERCENT AUTO 70 % (41-73); Platelet Count 151 K/mm3 (150-400); RDW Coefficient Variation 12.2 % (11.7-14.2); RDW Standard Deviation 42.3 fL (35.1-46.3); Red Blood Cell Count 3.34 M/mm3 (3.80-5.20); White Blood Cell Count 4.82 K/mm3 (4.00-11.30)
[2019-07-03 05:43] LABS: Albumin/Globulin Ratio 0.9 (0.8-1.8); Bilirubin, Total 0.2 mg/dL (0.1-1.0); Bun/Creatinine Ratio 13.6 (12.0-20.0); Calcium, Blood 7.9 mg/dL (8.5-10.1); Creatinine, Blood 1.47 mg/dL (0.40-1.00); Globulin, Blood 3.2 g/dL (2.2-4.0); Potassium, Blood 3.2 mmol/L (3.5-5.5); Total Protein, Blood 6.2 g/dL (6.4-8.2)
--- NOTE | 2019-07-03 06:47 | NUR ---
PT awake this AM asking when she can be Dc home. She had fever nausea & vomiting & migrane headache. PT continues on Bicarb 100 ml hour. Discussed vomiting infection pain. Medicated with helpful effect.
--- NOTE | 2019-07-03 16:51 | NUR ---
SHIFT SUMMARY PATIENT HAS HAD NO ACUTE ISSUES. NO DIARRHEA, NAUSEA OR VOMITING TODAY. INDEPENDENT IN THE ROOM.
--- NOTE | 2019-07-04 04:56 | NUR ---
SHIFT SUMMARY ADMITTED FOR FEVER/SOB. FULL CODE. DROPLET FOR R/O COVID. HOPEFUL FOR DC TODAY. SHE IS A&O X4, ON RA, REGULAR DIET, INDEPENDENT. SHE IS TOLERATING FOOD WELL. NO NAUSEA THIS SHIFT. NO NEW CONCERNS.
[2019-07-04 05:17] LABS: BASOPHILS ABSOLUTE AUTO 0.02 K/mm3 (0.00-0.23); BASOPHILS PERCENT AUTO 1 % (0-2); EOSINOPHILS ABSOLUTE AUTO 0.17 K/mm3 (0.00-0.68); EOSINOPHILS PERCENT AUTO 4 % (0-6); Hematocrit 30.8 % (33.0-51.0); Hemoglobin 9.4 g/dL (11.5-16.0); IMMATURE GRAN PERCENT AUTO 5 % (0-1); LYMPHOCYTES PERCENT AUTO 17 % (21-46); MONOCYTES ABSOLUTE AUTO 0.52 K/mm3 (0.16-1.47); MONOCYTES PERCENT AUTO 13 % (4-13); Mean Corpuscular HGB 29.1 pg (26.0-34.0); Mean Corpuscular HGB Conc 30.5 g/dL (31.5-36.5); Mean Corpuscular Volume 95 fL (80-100); NEUTROPHILS ABSOLUTE AUTO 2.52 K/mm3 (1.96-9.15); NEUTROPHILS PERCENT AUTO 61 % (41-73); Platelet Count 160 K/mm3 (150-400); RDW Coefficient Variation 12.1 % (11.7-14.2); RDW Standard Deviation 42.6 fL (35.1-46.3); Red Blood Cell Count 3.23 M/mm3 (3.80-5.20); White Blood Cell Count 4.13 K/mm3 (4.00-11.30)
[2019-07-04 05:48] LABS: Albumin, Blood 2.7 g/dL (3.4-5.0); Albumin/Globulin Ratio 0.8 (0.8-1.8); Bilirubin, Total 0.2 mg/dL (0.1-1.0); Bun/Creatinine Ratio 12.9 (12.0-20.0); Calcium, Blood 7.8 mg/dL (8.5-10.1); Creatinine, Blood 1.39 mg/dL (0.40-1.00); Globulin, Blood 3.3 g/dL (2.2-4.0)
--- NOTE | 2019-07-04 17:18 | NUR ---
SHIFT SUMMARY PT ALERT, ORIENTED, COOPERATIVE WITH CARE, AND INDEPENDENT IN THE ROOM. PT REMAINS FREE OF FEVER THROUGHOUT THIS SHIFT. PT HAS BEEN CALMLY LYING/SITTING UP IN BED THROUGH THIS SHIFT. PT CURRENTLY NAPPING IN BED.
--- NOTE | 2019-07-05 05:08 | NUR ---
POULTRY OFFAL ICER SUMMARY NO ACUTE CHANGES THIS SHIFT. PT AAOX4 AND INDEPENDENT IN ROOM. AFEBRILE THROUGH THE NIGHT. VSS, WILL CONTINUE TO MONITOR.
[2019-07-05 09:37] LABS: BASOPHILS ABSOLUTE AUTO 0.04 K/mm3 (0.00-0.23); BASOPHILS PERCENT AUTO 1 % (0-2); EOSINOPHILS ABSOLUTE AUTO 0.17 K/mm3 (0.00-0.68); EOSINOPHILS PERCENT AUTO 4 % (0-6); Hematocrit 32.9 % (33.0-51.0); Hemoglobin 10.3 g/dL (11.5-16.0); IMMATURE GRAN ABSOLUTE AUTO 0.11 K/mm3 (0.00-0.10); IMMATURE GRAN PERCENT AUTO 3 % (0-1); LYMPHOCYTES ABSOLUTE AUTO 0.62 K/mm3 (0.84-5.20); LYMPHOCYTES PERCENT AUTO 15 % (21-46); MONOCYTES PERCENT AUTO 12 % (4-13); Mean Corpuscular HGB 29.8 pg (26.0-34.0); Mean Corpuscular HGB Conc 31.3 g/dL (31.5-36.5); Mean Corpuscular Volume 95 fL (80-100); Mean Platelet Volume 9.9 fL (9.1-12.4); NEUTROPHILS ABSOLUTE AUTO 2.59 K/mm3 (1.96-9.15); NEUTROPHILS PERCENT AUTO 64 % (41-73); Platelet Count 205 K/mm3 (150-400); RDW Coefficient Variation 12.1 % (11.7-14.2); RDW Standard Deviation 42.2 fL (35.1-46.3); Red Blood Cell Count 3.46 M/mm3 (3.80-5.20); White Blood Cell Count 4.03 K/mm3 (4.00-11.30)
[2019-07-05 10:10] LABS: Albumin, Blood 3.2 g/dL (3.4-5.0); Albumin/Globulin Ratio 0.9 (0.8-1.8); Bilirubin, Total 0.3 mg/dL (0.1-1.0); Bun/Creatinine Ratio 12.3 (12.0-20.0); Calcium, Blood 8.6 mg/dL (8.5-10.1); Creatinine, Blood 1.3 mg/dL (0.40-1.00); Globulin, Blood 3.5 g/dL (2.2-4.0); Potassium, Blood 4.1 mmol/L (3.5-5.5); Total Protein, Blood 6.7 g/dL (6.4-8.2)
[2019-07-05] MEDS ORDERED: LOPE2C PO (12:46)
[2019-07-05] MEDS ORDERED: CIPR500 PO (12:47)
--- NOTE | 2019-07-05 13:20 | NUR ---
DISCHARGE NOTE- PT WAS GIVEN VERBAL AND WRITTEN DISCHARGE INSTRUCTIONS AND ACKNOWLEDGED UNDERSTANDING OF THEM. PT WAS ESCORTED OUT VIA WC BY THE SHANK PIECE TACKER WHERE SHE DROVE HERSELF HOME. SPOKE TO DR RODRIGUEZ ABOUT THE PT IV INFILTRATING AND HER ABX NOT SCHEDULED UNTIL 9PM. PT DOES NOT WISH TO STAY IN THE HOSPITAL ANOTHER DAY. RECIEVED VERBAL ORDER FOR PO CIPRO 500MG NOW AND BID FOR [address] RODRIGUEZ STATED SHE WILL SEND THE ORDER TO THE PT PHARMACY. PASSED ALL THIS ON TO DR LONG WHO WROTE THE DC ORDERS FOR THE PT SHORTLY AFTER.
== END 2019-07-05 13:20 | disposition home or self-care (01) | DRG 872 ==
LOC: ER 20:07 → MEDS 20:08
PROVIDERS: Emergency Medicine; Internal Medicine; ADMIT Internal Medicine
PROC: 8E0ZXY6 Isolation (ICD-10-PCS; principal; 2019-07-01)
DX: A41.9 Sepsis, unspecified organism (principal); Z94.4 Liver transplant status; Z94.0 Kidney transplant status; N17.9 Acute kidney failure, unspecified; E87.2 Acidosis; N39.0 Urinary tract infection, site not specified; N12 Tubulo-interstitial nephritis, not specified as acute or chronic; Z20.828 Contact with and (suspected) exposure to other viral communicable diseases; K21.9 Gastro-esophageal reflux disease without esophagitis; E03.9 Hypothyroidism, unspecified; Z79.82 Long term (current) use of aspirin; N18.3 Chronic kidney disease, stage 3 (moderate); E83.42 Hypomagnesemia
CPT/HCPCS: 0097U; 36415; 71045; 74176; 80048; 80053; 80069; 80076; 80197; 81001; 82728; 83605; 83735; 84100; 84550; 85025; 86140; 87040; 87077; 87086; 87186; 87496; 87799; 96361; 96365; 96367; 96372; 96375; 96376; 99285-25; A9270; A9270-GY; G0378; J0696; J1650; J2405; J2765; J3475; J7030; J7070; J7507; J7512; J7517; U0002; U0003

== ENCOUNTER → 2019-12-12 | Outpatient (CLI) | payer BC ==
[~2019-12-12] MED LIST changes: +ACET500 PO; +BENADRYL25 MG PO; +CEFD300 PO; +CEFU500T30 PO; +CIPR500 PO; +FAMO40 PO; +FLUC200 PO; +LOPE2C PO; +MYCO250 PO; +MYCOPHENOLATE250 MG PO; +MYCOPHENOLATE500 MG PO; +ONDA4ODT MM; +PROBIOTIC PO; +SODBIC650 PO; +VALGANCICLOVIR450 M1 PO; +VALGANCICLOVIR450 MG PO; +VITAMIN D31000 UNI1 PO; -VITAMIN D350 MCG PO
[2019-12-16 09:07] LABS: HPV 16 Negative (Negative); HPV 18 Negative (Negative); HPV OTHER HR TYPES Negative (Negative)
== END | disposition home or self-care (01) ==
LOC: LAB 10:14 → LAB SHORT 10:14
PROVIDERS: Obstetrics & Gynecology
DX: Z01.419 Encounter for gynecological examination (general) (routine) without abnormal findings (principal)
CPT/HCPCS: 87624; G0123

== ENCOUNTER 2020-02-21 16:31 | Emergency (ER) | payer BC, SELFPAY ==
[~2020-02-21] VITALS: Ht 157.5 cm; Wt 62.6 kg
[2020-02-21 17:32] LABS: BASOPHILS ABSOLUTE AUTO 0.02 K/mm3 (0.00-0.23); BASOPHILS PERCENT AUTO 0 % (0-2); EOSINOPHILS ABSOLUTE AUTO 0.02 K/mm3 (0.00-0.68); EOSINOPHILS PERCENT AUTO 0 % (0-6); Hematocrit 36.7 % (33.0-51.0); Hemoglobin 11.2 g/dL (11.5-16.0); IMMATURE GRAN ABSOLUTE AUTO 0.15 K/mm3 (0.00-0.10); IMMATURE GRAN PERCENT AUTO 2 % (0-1); LYMPHOCYTES ABSOLUTE AUTO 0.57 K/mm3 (0.84-5.20); LYMPHOCYTES PERCENT AUTO 7 % (21-46); MONOCYTES ABSOLUTE AUTO 0.39 K/mm3 (0.16-1.47); MONOCYTES PERCENT AUTO 5 % (4-13); Mean Corpuscular HGB 29.2 pg (26.0-34.0); Mean Corpuscular HGB Conc 30.5 g/dL (31.5-36.5); Mean Corpuscular Volume 96 fL (80-100); Mean Platelet Volume 9.7 fL (9.1-12.4); NEUTROPHILS ABSOLUTE AUTO 6.72 K/mm3 (1.96-9.15); NEUTROPHILS PERCENT AUTO 85 % (41-73); Platelet Count 235 K/mm3 (150-400); RDW Coefficient Variation 13.2 % (11.7-14.2); RDW Standard Deviation 46.1 fL (35.1-46.3); Red Blood Cell Count 3.84 M/mm3 (3.80-5.20); White Blood Cell Count 7.87 K/mm3 (4.00-11.30)
[2020-02-21 17:56] LABS: Albumin, Blood 4.2 g/dL (3.4-5.0); Albumin/Globulin Ratio 1.2 (0.8-1.8); Bilirubin, Total 0.3 mg/dL (0.1-1.0); Bun/Creatinine Ratio 16.9 (12.0-20.0); Calcium, Blood 8.9 mg/dL (8.5-10.1); Creatinine, Blood 2.72 mg/dL (0.40-1.00); Globulin, Blood 3.6 g/dL (2.2-4.0); Potassium, Blood 4.7 mmol/L (3.5-5.5); Total Protein, Blood 7.8 g/dL (6.4-8.2)
[2020-02-21 18:13] LABS: Troponin I <0.015 ng/mL (0.000-0.040)
[2020-02-21 19:46] LABS: Source, Urine Clean Catch
[2020-02-21 19:48] LABS: Appearance, Urine Clear (Clear); Bilirubin, Urine Neg (Neg); Blood, Urine 1+ (Neg); Color, Urine Yellow (P-Yellow); Glucose Qualitative, Urine Neg (Neg); Ketones, Urine Neg (Neg); Leukocyte Esterase, Urine Neg (Neg); Nitrite, Urine Neg (Neg); Protein, Urine 2+ (Neg); Urobilinogen, Urine NORM (Normal)
[2020-02-21 19:57] LABS: Bacteria Rare /hpf; Hyaline Casts 0-2 /lpf (0-2); Mucus Light (0-Heavy); Red Blood Cells, Urine 0-2 /hpf (0-2); Squamous Epithelial Cells Few /hpf (Few); White Blood Cells, Urine 0-2 /hpf (0-5)
[2020-02-21] MEDS ORDERED: ONDA4ODT MM (23:11)
[2020-05-15] MEDS ORDERED: Vitamin D2000 UNIT PO (14:01)
[2020-05-15] MEDS ORDERED: LEVOTHYROXINE50 MC1 PO (14:02)
[2020-05-15] MEDS ORDERED: FOLI1 PO (14:02)
[2020-05-15] MEDS ORDERED: Diflucan200 MG PO (14:02)
[2020-05-15] MEDS ORDERED: PANT40 PO (14:04)
[2020-05-15] MEDS ORDERED: MYCOPHENOLATE500 MG PO (14:04)
[2020-05-15] MEDS ORDERED: PREDNISONE5 M1 PO (14:05)
[2020-05-15] MEDS ORDERED: SODBIC650 PO (14:05)
[2020-05-15] MEDS ORDERED: PROGRAF0.5 M1 PO (14:08)
== END 2020-02-21 23:34 | disposition home or self-care (01) ==
LOC: ER 16:31
PROVIDERS: Physician Assistant
DX: R11.2 Nausea with vomiting, unspecified (principal); R19.7 Diarrhea, unspecified; N18.9 Chronic kidney disease, unspecified; Z79.52 Long term (current) use of systemic steroids; Z79.899 Other long term (current) drug therapy; Z87.891 Personal history of nicotine dependence; Z79.82 Long term (current) use of aspirin; Z94.0 Kidney transplant status
CPT/HCPCS: 36415; 74022; 80053; 80197; 81001; 81025; 83690; 84443; 84484; 85025; 93005; 93010; 96374; 99284-25; J2405; J7030

== ENCOUNTER 2020-02-26 09:15 | Day surgery (SDC) | payer BC, SELFPAY ==
[2020-02-26] MEDS ORDERED: SERT25 PO (11:22)
[2020-05-15] MEDS ORDERED: Vitamin D2000 UNIT PO (14:01)
[2020-05-15] MEDS ORDERED: LEVOTHYROXINE50 MC1 PO (14:02)
[2020-05-15] MEDS ORDERED: FOLI1 PO (14:02)
[2020-05-15] MEDS ORDERED: Diflucan200 MG PO (14:02)
[2020-05-15] MEDS ORDERED: MYCOPHENOLATE500 MG PO (14:04)
[2020-05-15] MEDS ORDERED: PANT40 PO (14:04)
[2020-05-15] MEDS ORDERED: SODBIC650 PO (14:05)
[2020-05-15] MEDS ORDERED: PREDNISONE5 M1 PO (14:05)
[2020-05-15] MEDS ORDERED: PROGRAF0.5 M1 PO (14:08)
== END 2020-02-26 12:17 | disposition home or self-care (01) ==
LOC: ATC 09:15
DX: Z29.8 Encounter for other specified prophylactic measures (principal); N17.9 Acute kidney failure, unspecified; Z94.0 Kidney transplant status; N11.9 Chronic tubulo-interstitial nephritis, unspecified; N18.4 Chronic kidney disease, stage 4 (severe); R19.7 Diarrhea, unspecified; Z79.899 Other long term (current) drug therapy; Z94.4 Liver transplant status
CPT/HCPCS: 96365; J0744; J7030

== ENCOUNTER → 2020-05-20 | Outpatient (CLI) | payer BC ==
[~2020-05-20] MED LIST changes: +Diflucan200 MG PO; +FOLI1 PO; +LEVOTHYROXINE50 MC1 PO; +PREDNISONE5 M1 PO; +PROGRAF0.5 M1 PO; +SERT25 PO; +Vitamin D2000 UNIT PO
[2020-05-20 20:27] LABS: Bilirubin, Urine Neg (Neg); Blood, Urine Neg (Neg); Glucose Qualitative, Urine Neg (Neg); Ketones, Urine Neg (Neg); Leukocyte Esterase, Urine Neg (Neg); Nitrite, Urine Neg (Neg); Protein, Urine 1+ (Neg); Specific Gravity, Urine 1.015 (1.003-1.022); Urobilinogen, Urine NORM (Normal)
[2020-05-20 20:34] LABS: Appearance, Urine Clear (Clear); Color, Urine Pale Yellow (P-Yellow)
[2020-05-20 20:52] LABS: Creatinine, Urine Random 50.5 mg/dL (27.00-270.00); Protein, Urine Random 17.6 mg/dL (0.0-11.9)
== END | disposition home or self-care (01) ==
LOC: LAB SHORT 18:51
PROVIDERS: Internal Medicine
DX: R82.90 Unspecified abnormal findings in urine (principal); Z94.0 Kidney transplant status; Z78.9 Other specified health status
CPT/HCPCS: 82570; 84156; 87086

== ENCOUNTER 2021-01-15 16:31 | Emergency (ER) | payer BC ==
[~2021-01-15] VITALS: Ht 157.5 cm; Wt 64.4 kg
[2021-01-15 17:19] LABS: BASOPHILS ABSOLUTE AUTO 0.04 K/mm3 (0.00-0.23); BASOPHILS PERCENT AUTO 1 % (0-2); EOSINOPHILS ABSOLUTE AUTO 0.06 K/mm3 (0.00-0.68); EOSINOPHILS PERCENT AUTO 1 % (0-6); Hematocrit 33.8 % (33.0-51.0); Hemoglobin 10.2 g/dL (11.5-16.0); IMMATURE GRAN ABSOLUTE AUTO 0.01 K/mm3 (0.00-0.10); IMMATURE GRAN PERCENT AUTO 0 % (0-1); LYMPHOCYTES ABSOLUTE AUTO 0.65 K/mm3 (0.84-5.20); LYMPHOCYTES PERCENT AUTO 11 % (21-46); MONOCYTES ABSOLUTE AUTO 0.35 K/mm3 (0.16-1.47); MONOCYTES PERCENT AUTO 6 % (4-13); Mean Corpuscular HGB 28.4 pg (26.0-34.0); Mean Corpuscular HGB Conc 30.2 g/dL (31.5-36.5); Mean Corpuscular Volume 94 fL (80-100); Mean Platelet Volume 10.1 fL (9.1-12.4); NEUTROPHILS ABSOLUTE AUTO 4.57 K/mm3 (1.96-9.15); NEUTROPHILS PERCENT AUTO 80 % (41-73); Platelet Count 200 K/mm3 (150-400); RDW Coefficient Variation 12.8 % (11.7-14.2); RDW Standard Deviation 44.1 fL (35.1-46.3); Red Blood Cell Count 3.59 M/mm3 (3.80-5.20); White Blood Cell Count 5.68 K/mm3 (4.00-11.30)
[2021-01-15 17:41] LABS: Albumin, Blood 3.5 g/dL (3.4-5.0); Albumin/Globulin Ratio 1.2 (0.8-1.8); Bilirubin, Total 0.2 mg/dL (0.1-1.0); Bun/Creatinine Ratio 15.3 (12.0-20.0); Calcium, Blood 8.2 mg/dL (8.5-10.1); Creatinine, Blood 3.52 mg/dL (0.40-1.00); Potassium, Blood 4.8 mmol/L (3.5-5.5); Total Protein, Blood 6.5 g/dL (6.4-8.2)
[2021-01-15 20:41] LABS: Source, Urine Clean Catch
[2021-01-15 20:43] LABS: Appearance, Urine Clear (Clear); Bilirubin, Urine Neg (Neg); Blood, Urine Neg (Neg); Color, Urine Yellow (P-Yellow); Glucose Qualitative, Urine Neg (Neg); Ketones, Urine Neg (Neg); Leukocyte Esterase, Urine Neg (Neg); Nitrite, Urine Neg (Neg); Protein, Urine 1+ (Neg); Urobilinogen, Urine NORM (Normal); pH, Urine 6.5 (5.0-8.0)
[2021-01-15] MEDS ORDERED: SERT25 PO (21:43)
== END 2021-01-16 01:12 | disposition home or self-care (01) ==
LOC: ER 16:31
PROVIDERS: Physician Assistant
DX: N17.9 Acute kidney failure, unspecified (principal); N18.9 Chronic kidney disease, unspecified; Z79.899 Other long term (current) drug therapy; Z79.82 Long term (current) use of aspirin; Z87.891 Personal history of nicotine dependence; Z94.0 Kidney transplant status
CPT/HCPCS: 36415; 76776; 80053; 85025; 99284-25; J7030

== ENCOUNTER 2021-01-24 20:58 | Inpatient (IN) | payer BC ==
[~2021-01-24] VITALS: Ht 157.5 cm; Wt 60.1 kg
[2021-01-24 21:29] LABS: BASOPHILS ABSOLUTE AUTO 0.04 K/mm3 (0.00-0.23); BASOPHILS PERCENT AUTO 0 % (0-2); EOSINOPHILS ABSOLUTE AUTO 0.08 K/mm3 (0.00-0.68); EOSINOPHILS PERCENT AUTO 1 % (0-6); Hematocrit 35.9 % (33.0-51.0); Hemoglobin 11.6 g/dL (11.5-16.0); IMMATURE GRAN ABSOLUTE AUTO 0.06 K/mm3 (0.00-0.10); IMMATURE GRAN PERCENT AUTO 1 % (0-1); LYMPHOCYTES ABSOLUTE AUTO 0.95 K/mm3 (0.84-5.20); LYMPHOCYTES PERCENT AUTO 11 % (21-46); MONOCYTES ABSOLUTE AUTO 0.44 K/mm3 (0.16-1.47); MONOCYTES PERCENT AUTO 5 % (4-13); Mean Corpuscular HGB 28.5 pg (26.0-34.0); Mean Corpuscular HGB Conc 32.3 g/dL (31.5-36.5); Mean Corpuscular Volume 88 fL (80-100); Mean Platelet Volume 9.8 fL (9.1-12.4); NEUTROPHILS ABSOLUTE AUTO 7.45 K/mm3 (1.96-9.15); NEUTROPHILS PERCENT AUTO 83 % (41-73); Platelet Count 229 K/mm3 (150-400); RDW Coefficient Variation 13.2 % (11.7-14.2); RDW Standard Deviation 42.5 fL (35.1-46.3); Red Blood Cell Count 4.07 M/mm3 (3.80-5.20); White Blood Cell Count 9.02 K/mm3 (4.00-11.30)
[2021-01-24 22:00] LABS: Albumin, Blood 3.9 g/dL (3.4-5.0); Albumin/Globulin Ratio 1.1 (0.8-1.8); Bilirubin, Total 0.4 mg/dL (0.1-1.0); Bun/Creatinine Ratio 12.8 (12.0-20.0); Calcium, Blood 9.3 mg/dL (8.5-10.1); Creatinine, Blood 4.23 mg/dL (0.40-1.00); Globulin, Blood 3.6 g/dL (2.2-4.0); Potassium, Blood 4.3 mmol/L (3.5-5.5); Total Protein, Blood 7.5 g/dL (6.4-8.2)
[2021-01-25 03:25] LABS: Source, Urine Clean Catch
[2021-01-25 03:27] LABS: Bilirubin, Urine Neg (Neg); Blood, Urine 2+ (Neg); Glucose Qualitative, Urine 1+ (Neg); Ketones, Urine Neg (Neg); Leukocyte Esterase, Urine 3+ (Neg); Nitrite, Urine Neg (Neg); Protein, Urine 3+ (Neg); Urobilinogen, Urine NORM (Normal)
[2021-01-25 03:37] LABS: Appearance, Urine Hazy (Clear); Bacteria Few /hpf; Color, Urine Yellow (P-Yellow); Red Blood Cells, Urine 0-2 /hpf (0-2); Squamous Epithelial Cells Not Seen /hpf (Few); White Blood Cells, Urine TNTC /hpf (0-5)
[2021-01-25 05:15] LABS: Influenza A, PCR NEGATIVE (NEGATIVE); Influenza B, PCR NEGATIVE (NEGATIVE); Resp Syncytial Virus, PCR NEGATIVE (NEGATIVE); SARS-Cov-2 (COVID-19) PCR, MMC NEGATIVE (NEGATIVE)
[2021-01-25 12:43] LABS: BASOPHILS ABSOLUTE AUTO 0.03 K/mm3 (0.00-0.23); BASOPHILS PERCENT AUTO 0 % (0-2); EOSINOPHILS ABSOLUTE AUTO 0.03 K/mm3 (0.00-0.68); EOSINOPHILS PERCENT AUTO 0 % (0-6); Hemoglobin 11.5 g/dL (11.5-16.0); IMMATURE GRAN ABSOLUTE AUTO 0.08 K/mm3 (0.00-0.10); IMMATURE GRAN PERCENT AUTO 1 % (0-1); LYMPHOCYTES ABSOLUTE AUTO 0.42 K/mm3 (0.84-5.20); LYMPHOCYTES PERCENT AUTO 3 % (21-46); MONOCYTES ABSOLUTE AUTO 0.64 K/mm3 (0.16-1.47); MONOCYTES PERCENT AUTO 5 % (4-13); Mean Corpuscular HGB 28.6 pg (26.0-34.0); Mean Corpuscular HGB Conc 32.9 g/dL (31.5-36.5); Mean Corpuscular Volume 87 fL (80-100); Mean Platelet Volume 9.8 fL (9.1-12.4); NEUTROPHILS ABSOLUTE AUTO 12.86 K/mm3 (1.96-9.15); NEUTROPHILS PERCENT AUTO 91 % (41-73); Platelet Count 173 K/mm3 (150-400); RDW Coefficient Variation 13.1 % (11.7-14.2); RDW Standard Deviation 41.1 fL (35.1-46.3); Red Blood Cell Count 4.02 M/mm3 (3.80-5.20); White Blood Cell Count 14.06 K/mm3 (4.00-11.30)
[2021-01-25 13:09] LABS: Bun/Creatinine Ratio 12.4 (12.0-20.0); Calcium, Blood 9.2 mg/dL (8.5-10.1); Creatinine, Blood 3.88 mg/dL (0.40-1.00)
[2021-01-25 17:55] LABS: C DIFFICILE DNA NEGATIVE (Negative)
[2021-01-26 00:45] LABS: Campylobacter Sp Not Detected (NOT DETECT)
[2021-01-26 00:46] LABS: Adenovirus F 40/41 Not Detected (NOT DETECT); Astrovirus Not Detected (NOT DETECT); Cryptosporidium Not Detected (NOT DETECT); Cyclospora Cayetanensis Not Detected (NOT DETECT); E. Coli O157 Not Detected (NOT DETECT); Entamoeba Histolytica Not Detected (NOT DETECT); Enteroaggregative E. coli-EAEC Not Detected (NOT DETECT); Enteropathogenic E. coli-EPEC Detected (NOT DETECT); Enterotoxigenic E. coli-ETEC Not Detected (NOT DETECT); Giardia Lamblia Not Detected (NOT DETECT); Norovirus GI/GII Not Detected (NOT DETECT); Plesiomonas Shigelloides Not Detected (NOT DETECT); Rotavirus A Not Detected (NOT DETECT); Salmonella Sp Not Detected (NOT DETECT); Sapovirus Not Detected (NOT DETECT); Shiga Toxin-prod E. coli-STEC Not Detected (NOT DETECT); Shigella/Enteroin E. coli-EIEC Not Detected (NOT DETECT); Vibrio Cholerae Not Detected (NOT DETECT); Vibrio Sp Not Detected (NOT DETECT); Yersinia Enterocolitica Not Detected (NOT DETECT)
--- NOTE | 2021-01-26 04:29 | NUR ---
SUMMARY: A/OX4, INDEPENDENT AND CALLS APPROPRIATELY TO SPECIFY NEEDS. L.ARM SHUNT OBSERVED, THRILLS/BRUITS INTACT. LR INFUSES AT 1OO ML/HR AND IV ABX RECIEVED. SHE REMAINS ON TELE IN NSR AT 90'S-100'S BPM. VSS/AFEBRILE, NO ACUTE CHANGES. PT DENIED NAUSEA AND ALL OTHER COMPLAINTS. WCTM AND REPORT TO DAY RN.
[2021-01-26 05:10] LABS: BASOPHILS ABSOLUTE AUTO 0.03 K/mm3 (0.00-0.23); BASOPHILS PERCENT AUTO 0 % (0-2); EOSINOPHILS ABSOLUTE AUTO 0.15 K/mm3 (0.00-0.68); EOSINOPHILS PERCENT AUTO 2 % (0-6); Hematocrit 32.4 % (33.0-51.0); Hemoglobin 10.4 g/dL (11.5-16.0); IMMATURE GRAN ABSOLUTE AUTO 0.07 K/mm3 (0.00-0.10); IMMATURE GRAN PERCENT AUTO 1 % (0-1); LYMPHOCYTES ABSOLUTE AUTO 0.73 K/mm3 (0.84-5.20); LYMPHOCYTES PERCENT AUTO 8 % (21-46); MONOCYTES ABSOLUTE AUTO 0.58 K/mm3 (0.16-1.47); MONOCYTES PERCENT AUTO 6 % (4-13); Mean Corpuscular HGB 28.5 pg (26.0-34.0); Mean Corpuscular HGB Conc 32.1 g/dL (31.5-36.5); Mean Corpuscular Volume 89 fL (80-100); Mean Platelet Volume 9.5 fL (9.1-12.4); NEUTROPHILS ABSOLUTE AUTO 7.57 K/mm3 (1.96-9.15); NEUTROPHILS PERCENT AUTO 83 % (41-73); Platelet Count 169 K/mm3 (150-400); RDW Coefficient Variation 13.2 % (11.7-14.2); RDW Standard Deviation 43.2 fL (35.1-46.3); Red Blood Cell Count 3.65 M/mm3 (3.80-5.20); White Blood Cell Count 9.13 K/mm3 (4.00-11.30)
[2021-01-26 05:27] LABS: Albumin, Blood 3.5 g/dL (3.4-5.0); Anion Gap 13 mmol/L (6-16); Blood Urea Nitrogen 43 mg/dL (8-24); Bun/Creatinine Ratio 11.4 (12.0-20.0); CO2, Blood 21 mmol/L (21-32); Calcium, Blood 9.1 mg/dL (8.5-10.1); Chloride, Blood 105 mmol/L (98-108); Creatinine, Blood 3.77 mg/dL (0.40-1.00); Glomerular Filtration Rate 13 (60-); Glucose, Blood 86 mg/dL (70-99); Magnesium, Blood 1.6 mg/dL (1.6-2.4); Phosphorus, Blood 3.9 mg/dL (2.5-4.9); Potassium, Blood 3.8 mmol/L (3.5-5.5); Sodium, Blood 139 mmol/L (136-145)
--- NOTE | 2021-01-26 09:02 | NUR ---
Initial Interview with [facility] Community Striper 1. Who did you speak with? Spoke with patient 2. What is the patient's prior level of functions? Independent lives with her mother and two children (12 and 16). Patient is able to cook and clean with assistance of mother and children. Patient is still able to drive and transport to appointments as needed. 3. What is the patient's current living situation? Patient lives with independently with her mother and two children. 4. 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 Yes, patient able to drive and has transportation. 5. Does patient still drive? Yes, patient able to drive and has transportation. 6. POA/PCP/NOK: PCP-Dr. Estevez/NOK-mother Kathy 7. Discharge goals: TBD -TBD -DME: none at this time/TBD -Medication Management: self-management -Preferred Pharmacy: [facility] -Housekeeping need: None -Cooking: None 8. List barriers to discharge: None at this time 9. Discharge Plan: TBD 10. PCP Follow up appointment: Will be scheduled within seven calendar days of discharge. Transition of care will contact patient.
[2021-01-26] MEDS ORDERED: ONDA4 PO (13:29)
[2021-01-26] MEDS ORDERED: CIPR500 PO (13:30)
[2021-01-26] MEDS ORDERED: VISBIOME 112.51 EACH PO (13:30)
[2021-01-26] MEDS ORDERED: POTA10T PO (13:30)
--- NOTE | 2021-01-26 18:28 | NUR ---
SHIFT SUMMARY: PT A/O X4 IND IN ROOM. PLEASANT AND COOPERATIVE. PT HAS NOT HAD MUCH OF APPETITE BUT WILL EAT CRACKERS. DRINKING FLUIDS WELL AT THIS TIME. PT REPORTED AT END OF SHIFT SHE HAD ONE SMALL LOOSE STOOL THIS AM AND NO FURTHER EPISODES T/OUT THE DAY. BP IMPROVING AT THIS TIME. HR DID BECOME ELEVATED TO 130 AT ONE TIME, PT WAS IN ROOM DOING STRETCHES AND DID NOT REPORT ANY CP OR SOB. NO ACUTE CHANGES OR CONCERNS THIS SHIFT.
--- NOTE | 2021-01-27 04:09 | NUR ---
LARISSA REMAINED STABLE THROUGHOUT THE CAREER SERVICES REPRESENTATIVE, SHE REQUESTED HER AMBIEN FOR SLEEP, DID NOT COMPLAIN OF ANY PAIN.
[2021-01-27 06:07] LABS: BASOPHILS ABSOLUTE AUTO 0.05 K/mm3 (0.00-0.23); BASOPHILS PERCENT AUTO 1 % (0-2); EOSINOPHILS ABSOLUTE AUTO 0.14 K/mm3 (0.00-0.68); EOSINOPHILS PERCENT AUTO 2 % (0-6); Hematocrit 35.2 % (33.0-51.0); Hemoglobin 11.1 g/dL (11.5-16.0); IMMATURE GRAN ABSOLUTE AUTO 0.04 K/mm3 (0.00-0.10); IMMATURE GRAN PERCENT AUTO 1 % (0-1); LYMPHOCYTES ABSOLUTE AUTO 0.92 K/mm3 (0.84-5.20); LYMPHOCYTES PERCENT AUTO 13 % (21-46); MONOCYTES PERCENT AUTO 9 % (4-13); Mean Corpuscular HGB 28.4 pg (26.0-34.0); Mean Corpuscular HGB Conc 31.5 g/dL (31.5-36.5); Mean Corpuscular Volume 90 fL (80-100); Mean Platelet Volume 9.9 fL (9.1-12.4); NEUTROPHILS ABSOLUTE AUTO 5.17 K/mm3 (1.96-9.15); NEUTROPHILS PERCENT AUTO 75 % (41-73); Platelet Count 195 K/mm3 (150-400); RDW Coefficient Variation 13.1 % (11.7-14.2); RDW Standard Deviation 43.3 fL (35.1-46.3); Red Blood Cell Count 3.91 M/mm3 (3.80-5.20); White Blood Cell Count 6.92 K/mm3 (4.00-11.30)
[2021-01-27 07:39] LABS: Albumin, Blood 3.6 g/dL (3.4-5.0); Anion Gap 15 mmol/L (6-16); Blood Urea Nitrogen 35 mg/dL (8-24); Bun/Creatinine Ratio 10.1 (12.0-20.0); CO2, Blood 21 mmol/L (21-32); Chloride, Blood 104 mmol/L (98-108); Creatinine, Blood 3.46 mg/dL (0.40-1.00); Glomerular Filtration Rate 15 (60-); Glucose, Blood 99 mg/dL (70-99); Magnesium, Blood 2.1 mg/dL (1.6-2.4); Phosphorus, Blood 3.8 mg/dL (2.5-4.9); Potassium, Blood 3.7 mmol/L (3.5-5.5); Sodium, Blood 140 mmol/L (136-145)
[2021-01-27] MEDS ORDERED: AMLO5 PO (10:18)
[2021-01-27] MEDS ORDERED: POTA10T PO (10:19)
--- NOTE | 2021-01-27 14:02 | NUR ---
DISCHARGE SUMMARY: PT DISCHARGED HOME VIA POV. DISCUSSED DISCHARGE INSTRUCTIONS AND NEW MEDICATIONS WITH PT. PT GEGE. ASSISTED PT WITH PACKING UP BELONGINGS. PT ESCORTED TO POV VIA WC BY [facility]. NEW MEDICATIONS FAXED TO [facility] PER PT REQUEST.
--- NOTE | 2021-01-27 16:14 | NUR ---
Per Dr. Thornton discharge appropriate for today (01/27/21). Patient does not oppose to discharge. Patient's family provided transportation to residence. DME: none ordered. Patient will contact [facility] PCP or visit urgent care if condition worsens; or if any questions on medication management contact PCP. Patient will be contacted by transition of care to schedule hospital discharge PCP follow up. Patient states she has a good support network of family and friends. No barriers to discharge at this time.
== END 2021-01-27 11:22 | disposition home or self-care (01) | DRG 699 ==
LOC: ER 20:58 → MEDS 01-25 03:43 → ERHOLD 01-25 03:43 → MEDS 01-25 16:35
PROVIDERS: Family Medicine; Physician Assistant; Student in an Organized Health Care Education/Training Program; ADMIT Family Medicine
DX: T86.19 Other complication of kidney transplant (principal); N39.0 Urinary tract infection, site not specified; E87.2 Acidosis; Z94.4 Liver transplant status; D84.9 Immunodeficiency, unspecified; N17.9 Acute kidney failure, unspecified; K52.9 Noninfective gastroenteritis and colitis, unspecified; Z20.822 Contact with and (suspected) exposure to COVID-19; I10 Essential (primary) hypertension; B96.20 Unspecified Escherichia coli [E. coli] as the cause of diseases classified elsewhere; K21.9 Gastro-esophageal reflux disease without esophagitis; E03.9 Hypothyroidism, unspecified; Z79.899 Other long term (current) drug therapy; Z88.8 Allergy status to other drugs, medicaments and biological substances; F32.A Depression, unspecified
CPT/HCPCS: 0097U; 0241U; 36415; 71046; 74176; 80048; 80053; 80069; 80197; 81001; 83605; 83690; 83735; 84484; 85025; 87040; 87086; 87493; 93005; 93010; 96361; 96374; 99285-25; A9270; J0696; J1644; J2405; J2550; J3475; J7050; J7120; J7507; J7512; J7517

== ENCOUNTER 2022-09-16 20:58 | Inpatient (IN) | payer BC ==
[~2022-09-16] VITALS: Ht 157.5 cm; Wt 59.1 kg
[~2022-09-16 20:58] MED LIST changes: +AMLO5 PO; -LEVOTHYROXINE50 MC1 PO; +ONDA4 PO; +POTA10T PO; +VISBIOME 112.51 EACH PO
[2022-09-16 21:42] LABS: BASOPHILS ABSOLUTE AUTO 0.06 K/mm3 (0.00-0.23); BASOPHILS PERCENT AUTO 0 % (0-2); EOSINOPHILS ABSOLUTE AUTO 0.15 K/mm3 (0.00-0.68); EOSINOPHILS PERCENT AUTO 1 % (0-6); Hematocrit 34.5 % (33.0-51.0); Hemoglobin 11.1 g/dL (11.5-16.0); IMMATURE GRAN ABSOLUTE AUTO 0.84 K/mm3 (0.00-0.10); IMMATURE GRAN PERCENT AUTO 4 % (0-1); LYMPHOCYTES ABSOLUTE AUTO 1.28 K/mm3 (0.84-5.20); LYMPHOCYTES PERCENT AUTO 6 % (21-46); MONOCYTES ABSOLUTE AUTO 1.09 K/mm3 (0.16-1.47); MONOCYTES PERCENT AUTO 6 % (4-13); Mean Corpuscular HGB Conc 32.2 g/dL (31.5-36.5); Mean Corpuscular Volume 90 fL (80-100); Mean Platelet Volume 10.1 fL (9.1-12.4); NEUTROPHILS ABSOLUTE AUTO 16.47 K/mm3 (1.96-9.15); NEUTROPHILS PERCENT AUTO 83 % (41-73); Platelet Count 298 K/mm3 (150-400); RDW Coefficient Variation 12.7 % (11.7-14.2); RDW Standard Deviation 41.4 fL (35.1-46.3); Red Blood Cell Count 3.83 M/mm3 (3.80-5.20); White Blood Cell Count 19.89 K/mm3 (4.00-11.30)
[2022-09-16 22:12] LABS: Albumin, Blood 3.2 g/dL (3.4-5.0); Albumin/Globulin Ratio 0.8 (0.8-1.8); Bilirubin, Total 0.4 mg/dL (0.1-1.0); Bun/Creatinine Ratio 12.3 (12.0-20.0); Calcium, Blood 9.2 mg/dL (8.5-10.1); Creatinine, Blood 2.28 mg/dL (0.40-1.00); Globulin, Blood 3.8 g/dL (2.2-4.0); Potassium, Blood 3.2 mmol/L (3.5-5.5)
[2022-09-16 22:33] LABS: Source, Urine Clean Catch
[2022-09-16 22:49] LABS: Bilirubin, Urine Neg (Neg); Blood, Urine 3+ (Neg); Glucose Qualitative, Urine Neg (Neg); Ketones, Urine 1+ (Neg); Leukocyte Esterase, Urine 3+ (Neg); Nitrite, Urine Neg (Neg); Protein, Urine 3+ (Neg); Urobilinogen, Urine NORM (Normal)
[2022-09-16 22:54] LABS: Appearance, Urine Hazy (Clear); Color, Urine Yellow (P-Yellow)
[2022-09-16 23:07] LABS: Bacteria Many /hpf; Squamous Epithelial Cells Few /hpf (Few); White Blood Cells, Urine TNTC /hpf (0-5)
[2022-09-17 01:32] LABS: Base Excess Venous 0.3 mmol/L; Bicarbonate Venous 24.8 mmol/L (24.0-30.0); PCO2 Venous 33.4 mmHg (38-42); pH Blood Venous 7.47 (7.34-7.37)
[2022-09-17 05:38] LABS: BASOPHILS ABSOLUTE AUTO 0.02 K/mm3 (0.00-0.23); BASOPHILS PERCENT AUTO 0 % (0-2); EOSINOPHILS PERCENT AUTO 0 % (0-6); Hematocrit 26.1 % (33.0-51.0); Hemoglobin 8.2 g/dL (11.5-16.0); IMMATURE GRAN ABSOLUTE AUTO 0.25 K/mm3 (0.00-0.10); IMMATURE GRAN PERCENT AUTO 2 % (0-1); LYMPHOCYTES ABSOLUTE AUTO 0.26 K/mm3 (0.84-5.20); LYMPHOCYTES PERCENT AUTO 2 % (21-46); MONOCYTES PERCENT AUTO 5 % (4-13); Mean Corpuscular HGB 28.6 pg (26.0-34.0); Mean Corpuscular HGB Conc 31.4 g/dL (31.5-36.5); Mean Corpuscular Volume 91 fL (80-100); Mean Platelet Volume 9.7 fL (9.1-12.4); NEUTROPHILS ABSOLUTE AUTO 10.29 K/mm3 (1.96-9.15); NEUTROPHILS PERCENT AUTO 90 % (41-73); Platelet Count 174 K/mm3 (150-400); RDW Coefficient Variation 12.6 % (11.7-14.2); RDW Standard Deviation 41.8 fL (35.1-46.3); Red Blood Cell Count 2.87 M/mm3 (3.80-5.20); White Blood Cell Count 11.42 K/mm3 (4.00-11.30)
[2022-09-17 06:30] LABS: Bun/Creatinine Ratio 12.4 (12.0-20.0); Calcium, Blood 7.3 mg/dL (8.5-10.1); Creatinine, Blood 1.86 mg/dL (0.40-1.00); Potassium, Blood 3.5 mmol/L (3.5-5.5)
[2022-09-17 07:55] VITALS: BP 110/75
[2022-09-17] MEDS ORDERED: Ultram50 MG PO (08:12)
--- NOTE | 2022-09-17 10:44 | NUR ---
PATIENT ADMIT TO PCU 14 THIS AM. ADMISSION COMPLETED WELL HOME MED REC. SIG OTHER AT BEDSIDE DURING ADMISSION. PATIENT ALERT AND ORIENTED X4. DENIES NUMBNESS/TINGLING. UP TO BATHROOM WITH SBA TO HELP MANAGE CORDS. DENIES PAIN. ON ROOM AIR SATING ABOVE 95%. LUNGS SOUNDING CLEAR AND DIM IN BASES. TELE SHOWING SR WITH HR 60'S. BP STABLE. DENIES CHEST PAIN/PRESSURE/PALPITATIONS. NO SIGNS OF EDEMA PPP. HEALED SCAR ON LEFT ARM FROM OLD FISTULA THAT WAS REVERSED LAST FEBRUARY PER PATIENT. DENIES ABDOMINAL PAIN/NAUSEA. BOWEL TONES PRESENT. EATING BREAKFAST AT THIS TIME. UP TO BATHROOM TO VOID. NS INFUSING PER EMAR. PATIENT STATES ULTRASOUND OF KIDNEYS WAS COMPLETED IN ED. RESULTS PENDING. ORIENTED TO ROOM/UNIT. PATIENT DENIES HAVING ANY SOURCES OF IGNITION. CALL LIGHT IN REACH.
[2022-09-17 11:39] VITALS: BP 109/75
[2022-09-17 15:32] VITALS: BP 108/70
--- NOTE | 2022-09-17 17:29 | NUR ---
SHIFT SUMMARY: NO ACUTE CHANGES. PATIENT VITAL SIGNS STABLE. TMAX 100.9, WHICH WAS IN ED PRIOR TO BEING BROUGHT UP TO FLOOR. NS CONTINUES TO INFUSE PER EMAR. REMAINS ON ROOM AIR. SR WITH HR 50-80'S. UP WITH SBA TO BATHROOM. EATING AND VOIDING WNL. DENIES PAIN THROUGHOUT SHIFT. SLEEPING ON AND OFF. SIG OTHER REMAINS AT BEDSIDE. CALLING FOR NEEDS.
[2022-09-17 19:47] VITALS: BP 112/78
--- NOTE | 2022-09-17 22:19 | NUR ---
ASSUMED PT CARE FROM [facility] FITZGERALD ON . A&OX4. DENIES ANY CHEST PAIN/PRESSURE. HR SR IN 60'S. BP STABLE, SEE RECORDED VITALS. DENIES SOB. RESPIRATIONS EVEN AND UNLABORED WITH O2 SATS > 92% ON RA. DENIES NAUSEA. AFEBRILE. S/O ATTENTIVE AT BEDSIDE. DENIES NEEDS. CALL LIGHT IN REACH. BED IN LOW POSITION.
[2022-09-18 00:19] VITALS: BP 134/90
[2022-09-18 04:13] VITALS: BP 115/75
--- NOTE | 2022-09-18 04:23 | NUR ---
SHIFT SUMMARY: NO ACUTE CHANGES NOTED DURING THIS SHIFT. PT REMAINS AFEBRILE. DENIES ANY COMPLAINTS. VITAL SIGNS STABLE. CALL LIGHT IN REACH. BED IN LOW POSITION. S/O ATTENTIVE AT BEDSIDE.
[2022-09-18 05:33] LABS: BASOPHILS ABSOLUTE AUTO 0.04 K/mm3 (0.00-0.23); BASOPHILS PERCENT AUTO 0 % (0-2); EOSINOPHILS ABSOLUTE AUTO 0.16 K/mm3 (0.00-0.68); EOSINOPHILS PERCENT AUTO 2 % (0-6); Hematocrit 28.2 % (33.0-51.0); Hemoglobin 8.5 g/dL (11.5-16.0); IMMATURE GRAN ABSOLUTE AUTO 0.19 K/mm3 (0.00-0.10); IMMATURE GRAN PERCENT AUTO 2 % (0-1); LYMPHOCYTES ABSOLUTE AUTO 0.99 K/mm3 (0.84-5.20); LYMPHOCYTES PERCENT AUTO 10 % (21-46); MONOCYTES ABSOLUTE AUTO 0.72 K/mm3 (0.16-1.47); MONOCYTES PERCENT AUTO 8 % (4-13); Mean Corpuscular HGB 28.3 pg (26.0-34.0); Mean Corpuscular HGB Conc 30.1 g/dL (31.5-36.5); Mean Corpuscular Volume 94 fL (80-100); Mean Platelet Volume 10.3 fL (9.1-12.4); NEUTROPHILS ABSOLUTE AUTO 7.51 K/mm3 (1.96-9.15); NEUTROPHILS PERCENT AUTO 78 % (41-73); Platelet Count 156 K/mm3 (150-400); RDW Coefficient Variation 13.2 % (11.7-14.2); RDW Standard Deviation 45.1 fL (35.1-46.3); White Blood Cell Count 9.61 K/mm3 (4.00-11.30)
[2022-09-18 05:59] LABS: Albumin, Blood 2.3 g/dL (3.4-5.0); Albumin/Globulin Ratio 0.7 (0.8-1.8); Bilirubin, Total 0.2 mg/dL (0.1-1.0); Bun/Creatinine Ratio 10.3 (12.0-20.0); Calcium, Blood 7.2 mg/dL (8.5-10.1); Creatinine, Blood 2.04 mg/dL (0.40-1.00); Globulin, Blood 3.1 g/dL (2.2-4.0); Potassium, Blood 3.5 mmol/L (3.5-5.5); Total Protein, Blood 5.4 g/dL (6.4-8.2)
--- NOTE | 2022-09-18 07:27 | NUR ---
AM NOTE: PATIENT ALERT AND ORIENTED. DENIES NUMBNESS/TINGLING. UP WITH SBA TO HELP MANAGE CORDS. DENIES PAIN THROUGHOUT. ON ROOM AIR SATING ABOVE 95%. LUNGS SOUNDING CLEAR AND DIM IN BASES. DENIES COUGH/SOB. EVEN AND UNLABORED RESPIRATIONS. TELE SHOWING SR WITH HR 60-80'S. BP STABLE. DENIES CHEST PAIN/PRESSURE. NO EDEMA NOTED. DENIES ABDOMINAL PAIN. BOWEL TONES PRESENT. UP TO BATHROOM TO VOID. EATING AND DRINKING WNL. NS INFUSING PER EMAR. SIG OTHER REMAINS AT BEDSIDE. AM VITALS WNL. CALL LIGHT IN REACH. PATIENT DENIES HAVING ANY SOURCES OF IGNITION.
[2022-09-18 11:38] VITALS: BP 155/96
[2022-09-18 15:41] VITALS: BP 148/98
--- NOTE | 2022-09-18 17:35 | NUR ---
SHIFT SUMMARY: NO ACUTE CHANGES. VITAL SIGNS STABLE. IV ABX INFUSED. NS INFUSING PER EMAR. REMAINS ON ROOM AIR. MEDICAL STATUS NO TELE. EATING AND VOIDING WNL. SHOWER TODAY. SIG OTHER AT BEDSIDE THIS AM. PATIENT DENIES PAIN THROUGHOUT SHIFT. CALL LIGHT IN REACH.
[2022-09-18 20:23] VITALS: BP 150/99
--- NOTE | 2022-09-18 23:15 | NUR ---
ASSUMED PT CARE FROM [facility] FITZGERALD ON . A&OX4. DENIES ANY CHEST PAIN/PRESSURE, HR IN THE 60'S. PT HAS ORDER FOR NO TELEMETRY. RESPIRATIONS EVEN AND UNLABORED, O2 SATS > 92% ON RA. BP STABLE, SEE RECORDED VITAL SIGNS. AFEBRILE. INDEPENDENT IN ROOM. VOIDING CLEAR YELLOW URINE. DENIES NEEDS. CALL LIGHT IN REACH. BED IN LOW POSITION.
[2022-09-19 00:37] VITALS: BP 116/75
[2022-09-19 03:46] VITALS: BP 144/98
[2022-09-19 03:53] LABS: BASOPHILS ABSOLUTE AUTO 0.04 K/mm3 (0.00-0.23); BASOPHILS PERCENT AUTO 1 % (0-2); EOSINOPHILS ABSOLUTE AUTO 0.15 K/mm3 (0.00-0.68); EOSINOPHILS PERCENT AUTO 2 % (0-6); Hematocrit 27.6 % (33.0-51.0); Hemoglobin 8.4 g/dL (11.5-16.0); IMMATURE GRAN PERCENT AUTO 3 % (0-1); LYMPHOCYTES PERCENT AUTO 12 % (21-46); MONOCYTES ABSOLUTE AUTO 0.51 K/mm3 (0.16-1.47); MONOCYTES PERCENT AUTO 7 % (4-13); Mean Corpuscular HGB 28.5 pg (26.0-34.0); Mean Corpuscular HGB Conc 30.4 g/dL (31.5-36.5); Mean Corpuscular Volume 94 fL (80-100); NEUTROPHILS ABSOLUTE AUTO 5.45 K/mm3 (1.96-9.15); NEUTROPHILS PERCENT AUTO 75 % (41-73); Platelet Count 159 K/mm3 (150-400); RDW Coefficient Variation 12.9 % (11.7-14.2); RDW Standard Deviation 43.9 fL (35.1-46.3); Red Blood Cell Count 2.95 M/mm3 (3.80-5.20); White Blood Cell Count 7.25 K/mm3 (4.00-11.30)
[2022-09-19 04:07] LABS: Bun/Creatinine Ratio 9.5 (12.0-20.0); Calcium, Blood 7.7 mg/dL (8.5-10.1); Creatinine, Blood 1.79 mg/dL (0.40-1.00); Potassium, Blood 3.6 mmol/L (3.5-5.5)
--- NOTE | 2022-09-19 04:17 | NUR ---
SHIFT SUMMARY: NO ACUTE CHANGES NOTED DURING THIS SHIFT. VITAL SIGNS REMAIN STABLE. DENIES ANY PAIN. VOIDING CLEAR, YELLOW URINE WITHOUT DIFFICULTY. AFEBILE. RESTING IN BED. CALL LIGHT IN REACH. BED IN LOW POSITION.
[2022-09-19 08:51] VITALS: BP 132/83
[2022-09-19] MEDS ORDERED: VISBIOME 112.51 EACH PO (11:45)
[2022-09-19] MEDS ORDERED: SULFAMETHOXAZO1 EAC1 PO (11:46)
[2022-09-19 12:18] VITALS: BP 148/92
--- NOTE | 2022-09-19 12:26 | NUR ---
DISCHARGE SUMMARY PT A&OX4, VSS. FAMILY IN ROOM. DISCHARGE PAPERWORK REVIEWED W/ PT AND FAMILY. PT STATED SHE ALREADY HAS FOLLOWUP APPTS SCHEDULED. NEW MEDICATIONS REVIEWED AND FAXED TO [facility]. IV REMOVED. PT AMBULATED W/ FAMILY AND AIDE OUT FOR DISCHARGE.
[2022-09-20 09:10] LABS: MYCOPHENOLIC ACID 0.4 ug/mL (1.0-3.5)
== END 2022-09-19 12:27 | disposition home or self-care (01) | DRG 872 ==
LOC: ER 20:58 → ERHOLD 09-17 04:35 → PCU 09-17 04:35
PROVIDERS: Family Medicine; Internal Medicine; Physician Assistant; Student in an Organized Health Care Education/Training Program; ADMIT Internal Medicine
DX: A41.51 Sepsis due to Escherichia coli [E. coli] (principal); E87.3 Alkalosis; D84.9 Immunodeficiency, unspecified; N10 Acute pyelonephritis; Z94.0 Kidney transplant status; Z94.4 Liver transplant status; N17.9 Acute kidney failure, unspecified; N18.4 Chronic kidney disease, stage 4 (severe); N39.0 Urinary tract infection, site not specified; E87.20 Acidosis, unspecified; R65.20 Severe sepsis without septic shock; F41.8 Other specified anxiety disorders; I12.9 Hypertensive chronic kidney disease with stage 1 through stage 4 chronic kidney disease, or unspecified chronic kidney disease; D63.1 Anemia in chronic kidney disease; E87.6 Hypokalemia; Z87.440 Personal history of urinary (tract) infections; K21.9 Gastro-esophageal reflux disease without esophagitis; E03.9 Hypothyroidism, unspecified; Z98.890 Other specified postprocedural states; Z79.82 Long term (current) use of aspirin; Z79.890 Hormone replacement therapy; Z79.899 Other long term (current) drug therapy
CPT/HCPCS: 36415; 76770; 80048; 80053; 80180; 80197; 81001; 82010; 82803; 83605; 83690; 85025; 87040; 87077; 87086; 87186; 96361; 96365; 96375; 96376; 99285-25; A9270; J0696; J1644; J2020; J2270; J2405; J2765; J3010; J3370; J3480; J7030; J7507; J7512; J7517

== ENCOUNTER → 2022-10-03 | Outpatient (CLI) | payer BC ==
[~2022-10-03] MED LIST changes: +SULFAMETHOXAZO1 EAC1 PO; +Ultram50 MG PO
[2022-10-03 13:03] LABS: Creatinine Urine 63.1 mg/dL (27.00-270.00); Microalbumin, Urine Quant. 40.3 mg/L (0.000-20.000); Protein, Urine Quantitative 17.5 mg/dL (0.0-11.9)
== END | disposition home or self-care (01) ==
LOC: LAB 10:46 → LAB SHORT 10:46
PROVIDERS: Internal Medicine Nephrology
DX: N18.30 Chronic kidney disease, stage 3 unspecified (principal); D63.1 Anemia in chronic kidney disease; N25.81 Secondary hyperparathyroidism of renal origin; E55.9 Vitamin D deficiency, unspecified; E78.00 Pure hypercholesterolemia, unspecified; D51.8 Other vitamin B12 deficiency anemias; D52.8 Other folate deficiency anemias; D50.9 Iron deficiency anemia, unspecified; R76.9 Abnormal immunological finding in serum, unspecified; R94.5 Abnormal results of liver function studies; R94.6 Abnormal results of thyroid function studies
CPT/HCPCS: 36415; 81050; 82043; 82570; 84156; 86335

== ENCOUNTER 2022-11-17 17:48 | Inpatient (IN) | payer BC ==
[~2022-11-17] VITALS: Ht 157.5 cm; Wt 50.0 kg
[2022-11-17 18:36] LABS: BASOPHILS ABSOLUTE AUTO 0.06 K/mm3 (0.00-0.23); BASOPHILS PERCENT AUTO 1 % (0-2); EOSINOPHILS PERCENT AUTO 2 % (0-6); Hematocrit 40.2 % (33.0-51.0); Hemoglobin 12.4 g/dL (11.5-16.0); IMMATURE GRAN ABSOLUTE AUTO 0.07 K/mm3 (0.00-0.10); IMMATURE GRAN PERCENT AUTO 1 % (0-1); LYMPHOCYTES ABSOLUTE AUTO 2.27 K/mm3 (0.84-5.20); LYMPHOCYTES PERCENT AUTO 22 % (21-46); MONOCYTES PERCENT AUTO 6 % (4-13); Mean Corpuscular HGB 28.7 pg (26.0-34.0); Mean Corpuscular HGB Conc 30.8 g/dL (31.5-36.5); Mean Corpuscular Volume 93 fL (80-100); Mean Platelet Volume 10.2 fL (9.1-12.4); NEUTROPHILS ABSOLUTE AUTO 7.17 K/mm3 (1.96-9.15); NEUTROPHILS PERCENT AUTO 69 % (41-73); Platelet Count 302 K/mm3 (150-400); RDW Coefficient Variation 13.3 % (11.7-14.2); RDW Standard Deviation 45.5 fL (35.1-46.3); Red Blood Cell Count 4.32 M/mm3 (3.80-5.20); White Blood Cell Count 10.37 K/mm3 (4.00-11.30)
[2022-11-17 19:12] LABS: Albumin, Blood 3.9 g/dL (3.4-5.0); Bilirubin, Total 0.3 mg/dL (0.1-1.0); Bun/Creatinine Ratio 17.2 (12.0-20.0); Calcium, Blood 9.9 mg/dL (8.5-10.1); Creatinine, Blood 2.27 mg/dL (0.40-1.00); Globulin, Blood 3.9 g/dL (2.2-4.0); Potassium, Blood 3.2 mmol/L (3.5-5.5); Total Protein, Blood 7.8 g/dL (6.4-8.2)
[2022-11-17 21:17] LABS: Source, Urine Clean Catch
[2022-11-17 21:30] LABS: Bilirubin, Urine Neg (Neg); Blood, Urine 2+ (Neg); Glucose Qualitative, Urine 2+ (Neg); Ketones, Urine Neg (Neg); Leukocyte Esterase, Urine 1+ (Neg); Nitrite, Urine Neg (Neg); Protein, Urine 2+ (Neg); Urobilinogen, Urine NORM (Normal); pH, Urine 6.5 (5.0-8.0)
[2022-11-17 21:37] LABS: Color, Urine Yellow (P-Yellow)
[2022-11-17 21:38] LABS: Appearance, Urine Hazy (Clear); Bacteria Many /hpf; Red Blood Cells, Urine 0-2 /hpf (0-2); Squamous Epithelial Cells Few /hpf (Few)
[2022-11-17 22:09] LABS: Influenza A, PCR NEGATIVE (NEGATIVE); Influenza B, PCR NEGATIVE (NEGATIVE); Resp Syncytial Virus, PCR NEGATIVE (NEGATIVE); SARS-Cov-2 (COVID-19) PCR, MMC NEGATIVE (NEGATIVE)
[2022-11-17 23:31] LABS: Magnesium, Blood 1.4 mg/dL (1.6-2.4)
[2022-11-17 23:32] LABS: Phosphorus, Blood 1.2 mg/dL (2.5-4.9); Thyroid Stimulating Hormone 2.11 uIU/mL (0.360-4.800)
[2022-11-18 05:10] VITALS: BP 125/80
--- NOTE | 2022-11-18 05:37 | NUR ---
ASSUMED CARE OF PATIENT AT 0500 UPON HER ARRIVAL FROM ED. ABLE TO STAND FOR WEIGHT AND TRANSFER TO BED. 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 ENDORSED LBM TODAY WAS DIARRHEA. NO CURRENT NAUSEA. USES CANNABIS EDIBLES AND DABS 1-2 TIMES PER DAY. A&O X 4, PLEASANT. UNDERSTANDS WHY SHE IS NPO. REFUSED SCD'S. VERBALIZED UNDERSTANDING OF CALL LIGHT, ROOM LAYOUT, FALL PREVENTION MEASURES, NON-SMOKING CAMPUS, OXYGEN SAFETY, AND [facility] NOT RESPONSIBLE FOR VALUABLES. HAS NO INCENDIARY DEVICES. CALL LIGHT IN REACH,ASKEDTO HAVE DOOR CLOSED.
[2022-11-18 08:28] VITALS: BP 128/90
[2022-11-18 08:34] LABS: Magnesium, Blood 1.6 mg/dL (1.6-2.4)
[2022-11-18 08:35] LABS: Albumin, Blood 3.2 g/dL (3.4-5.0); Anion Gap 5 mmol/L (6-16); Blood Urea Nitrogen 32 mg/dL (8-24); Bun/Creatinine Ratio 15.5 (12.0-20.0); CO2, Blood 28 mmol/L (21-32); Calcium, Blood 8.3 mg/dL (8.5-10.1); Chloride, Blood 108 mmol/L (98-108); Creatinine, Blood 2.07 mg/dL (0.40-1.00); Glomerular Filtration Rate 30 (60-); Glucose, Blood 78 mg/dL (70-99); Potassium, Blood 4.5 mmol/L (3.5-5.5); Sodium, Blood 141 mmol/L (136-145)
--- NOTE | 2022-11-18 16:32 | NUR ---
THE PATIENT WS ADMITTED TODAY FOR UTI AND ACUTE NAUSEA AND VOMITTING. THE PATIENT HAS SLEPT MOST OF THE SHIFT AND IS A&O X4 WHEN AWAKE, FOLLOWS COMMANDS AND IS PLEASENT TO VISIT WITH. THE PATIENT'S SPOUSE HAS BEEN IN THE ROOM WITH THE PATIENT MOST OF THE SHIFT ALSO. THE PATIENT'S DIET WAS RAISED TO CLEAR LIQUIDS THIS SHIFT. THE PATIENT IS SLEEPING AT THIS TIME, I WILL CONTINUE TO MONITOR HER.
[2022-11-18 19:12] VITALS: BP 104/72
[2022-11-19 04:19] VITALS: BP 134/96
[2022-11-19 05:17] LABS: BASOPHILS ABSOLUTE AUTO 0.03 K/mm3 (0.00-0.23); BASOPHILS PERCENT AUTO 1 % (0-2); EOSINOPHILS ABSOLUTE AUTO 0.14 K/mm3 (0.00-0.68); EOSINOPHILS PERCENT AUTO 3 % (0-6); Hematocrit 32.3 % (33.0-51.0); IMMATURE GRAN ABSOLUTE AUTO 0.01 K/mm3 (0.00-0.10); IMMATURE GRAN PERCENT AUTO 0 % (0-1); LYMPHOCYTES ABSOLUTE AUTO 1.07 K/mm3 (0.84-5.20); LYMPHOCYTES PERCENT AUTO 24 % (21-46); MONOCYTES PERCENT AUTO 7 % (4-13); Mean Corpuscular HGB 29.1 pg (26.0-34.0); Mean Corpuscular Volume 94 fL (80-100); NEUTROPHILS PERCENT AUTO 66 % (41-73); Platelet Count 182 K/mm3 (150-400); RDW Coefficient Variation 13.3 % (11.7-14.2); RDW Standard Deviation 45.4 fL (35.1-46.3); Red Blood Cell Count 3.44 M/mm3 (3.80-5.20); White Blood Cell Count 4.55 K/mm3 (4.00-11.30)
[2022-11-19 06:26] LABS: Magnesium, Blood 1.5 mg/dL (1.6-2.4); Uric Acid, Blood 6.3 mg/dL (2.6-6.0)
[2022-11-19 06:32] LABS: Alanine Aminotransfer (ALT/SGP 17 U/L (12-78); Albumin, Blood 2.9 g/dL (3.4-5.0); Albumin/Globulin Ratio 0.9 (0.8-1.8); Alk Phos 46 U/L (50-136); Anion Gap 6 mmol/L (6-16); Aspartate Aminotrans (AST/SGOT 19 U/L (12-37); Bilirubin, Direct <0.1 mg/dL (0.0-0.3); Bilirubin, Indirect Unable to Calculate mg/dL (0.1-0.7); Bilirubin, Total 0.4 mg/dL (0.1-1.0); Blood Urea Nitrogen 24 mg/dL (8-24); Bun/Creatinine Ratio 12.5 (12.0-20.0); CO2, Blood 25 mmol/L (21-32); Calcium, Blood 8.2 mg/dL (8.5-10.1); Chloride, Blood 111 mmol/L (98-108); Creatinine, Blood 1.92 mg/dL (0.40-1.00); Globulin, Blood 3.2 g/dL (2.2-4.0); Glomerular Filtration Rate 33 (60-); Glucose, Blood 75 mg/dL (70-99); Phosphorus, Blood 3.1 mg/dL (2.5-4.9); Potassium, Blood 4.2 mmol/L (3.5-5.5); Sodium, Blood 142 mmol/L (136-145); Total Protein, Blood 6.1 g/dL (6.4-8.2)
--- NOTE | 2022-11-19 06:39 | NUR ---
Shift Summary Pt stating no nausea or pain t/o the shift. Rcving IV ABX for probable UTI. NS running at 75 mL/hr. Daughter in the room overnight. Independent, AOx4, pleasant and cooperative. Slept well t/o most of the night.
[2022-11-19 07:09] LABS: Adenovirus F 40/41 Not Detected (NOT DETECT); Astrovirus Not Detected (NOT DETECT); Campylobacter Sp Not Detected (NOT DETECT); Cryptosporidium Not Detected (NOT DETECT); Cyclospora Cayetanensis Not Detected (NOT DETECT); E. Coli O157 Not Detected (NOT DETECT); Entamoeba Histolytica Not Detected (NOT DETECT); Enteroaggregative E. coli-EAEC Not Detected (NOT DETECT); Enteropathogenic E. coli-EPEC Not Detected (NOT DETECT); Enterotoxigenic E. coli-ETEC Not Detected (NOT DETECT); Giardia Lamblia Not Detected (NOT DETECT); Norovirus GI/GII Not Detected (NOT DETECT); Plesiomonas Shigelloides Not Detected (NOT DETECT); Rotavirus A Not Detected (NOT DETECT); Salmonella Sp Not Detected (NOT DETECT); Sapovirus Not Detected (NOT DETECT); Shiga Toxin-prod E. coli-STEC Not Detected (NOT DETECT); Shigella/Enteroin E. coli-EIEC Not Detected (NOT DETECT); Vibrio Cholerae Not Detected (NOT DETECT); Vibrio Sp Not Detected (NOT DETECT); Yersinia Enterocolitica Not Detected (NOT DETECT)
[2022-11-19 07:22] VITALS: BP 143/87
[2022-11-19 15:37] VITALS: BP 112/81
--- NOTE | 2022-11-19 17:32 | NUR ---
SHIFT SUMMARY PATIENT DOING WELL THIS SHIFT, STATED SHE FEELS READY TO GO HOME. NO C/O PAIN, NO NAUSEA/VOMITING. AMBULATING IN ROOM INDEPENDENTLY. WILL CONTINUE TO MONITOR
[2022-11-19 19:48] VITALS: BP 120/79
--- NOTE | 2022-11-20 03:17 | NUR ---
SALES PORTER SUMMARY VSS. AT HS FAMILY AT BEDSIDE FOR SUPPORT. DR AVELAR VISITED, ORDERED NS TO INFUSE AT 75 ML/HR. IVF INFUSING ORDERED. ALERT AND ORIENTED. CHEERFUL AFECT. ANTIBIOTICS INFUSING ORDERED - SEE MAR FOR DETAILS. HAS BEEN RESTING QUIETLY WITH FEW INTERRUPTIONS. CALL LIGHT IN REACH. WILL CONTINUE TO MONITOR.
[2022-11-20 04:20] VITALS: BP 118/78
[2022-11-20 05:18] LABS: BASOPHILS ABSOLUTE AUTO 0.03 K/mm3 (0.00-0.23); BASOPHILS PERCENT AUTO 1 % (0-2); EOSINOPHILS ABSOLUTE AUTO 0.14 K/mm3 (0.00-0.68); EOSINOPHILS PERCENT AUTO 3 % (0-6); Hematocrit 33.2 % (33.0-51.0); Hemoglobin 10.1 g/dL (11.5-16.0); IMMATURE GRAN ABSOLUTE AUTO 0.01 K/mm3 (0.00-0.10); IMMATURE GRAN PERCENT AUTO 0 % (0-1); LYMPHOCYTES ABSOLUTE AUTO 1.22 K/mm3 (0.84-5.20); LYMPHOCYTES PERCENT AUTO 22 % (21-46); MONOCYTES ABSOLUTE AUTO 0.44 K/mm3 (0.16-1.47); MONOCYTES PERCENT AUTO 8 % (4-13); Mean Corpuscular HGB 28.4 pg (26.0-34.0); Mean Corpuscular HGB Conc 30.4 g/dL (31.5-36.5); Mean Corpuscular Volume 93 fL (80-100); NEUTROPHILS PERCENT AUTO 67 % (41-73); Platelet Count 200 K/mm3 (150-400); RDW Coefficient Variation 13.2 % (11.7-14.2); RDW Standard Deviation 45.2 fL (35.1-46.3); Red Blood Cell Count 3.56 M/mm3 (3.80-5.20); White Blood Cell Count 5.54 K/mm3 (4.00-11.30)
[2022-11-20 05:48] LABS: Albumin, Blood 2.8 g/dL (3.4-5.0); Anion Gap 6 mmol/L (6-16); Blood Urea Nitrogen 22 mg/dL (8-24); Bun/Creatinine Ratio 10.8 (12.0-20.0); CO2, Blood 24 mmol/L (21-32); Calcium, Blood 8.1 mg/dL (8.5-10.1); Chloride, Blood 111 mmol/L (98-108); Creatinine, Blood 2.03 mg/dL (0.40-1.00); Glomerular Filtration Rate 31 (60-); Glucose, Blood 99 mg/dL (70-99); Magnesium, Blood 1.8 mg/dL (1.6-2.4); Phosphorus, Blood 2.7 mg/dL (2.5-4.9); Potassium, Blood 3.5 mmol/L (3.5-5.5); Sodium, Blood 141 mmol/L (136-145)
[2022-11-20 07:43] VITALS: BP 116/74
[2022-11-20 16:44] VITALS: BP 117/79
--- NOTE | 2022-11-20 17:11 | NUR ---
SHIFT SUMMARY PATIENT DOING WELL THIS SHIFT, NO COMPLAINTS OF PAIN, NO NAUSEA AND VOMITING. AMBULATING IN ROOM INDEPENDENTLY. WILL CONTINUE TO MONITOR
[2022-11-20 19:43] VITALS: BP 143/82
[2022-11-21] MEDS ORDERED: PROGRAF0.510 PO (00:14)
[2022-11-21] MEDS ORDERED: PROZAC40 MG PO (00:16)
[2022-11-21] MEDS ORDERED: Methocarbamol500 MG PO (00:16)
[2022-11-21 04:38] VITALS: BP 140/93
--- NOTE | 2022-11-21 04:48 | NUR ---
SHIFT SUMMARY NOC PT A/O X 4. PLEASANT AND COOPERATIVE WITH CARE. NO ACUTE CHANGES TO REPORT. PT REMAINS FREE OF N/V. PT HAS LR INFUSING @ 125 ML/HR. PT EXPECTED TO DISCHARGE HOME TODAY PENDING APPROVAL FROM DR AVELAR. PT IS CURRENTLY RESTING WITH BED IN LOWEST POSITION, AND CALL LIGHT WITHIN REACH.
[2022-11-21 05:25] LABS: Hematocrit 34.5 % (33.0-51.0); Hemoglobin 10.5 g/dL (11.5-16.0)
[2022-11-21 05:42] LABS: Anion Gap 4 mmol/L (6-16); Blood Urea Nitrogen 19 mg/dL (8-24); Bun/Creatinine Ratio 10.8 (12.0-20.0); CO2, Blood 24 mmol/L (21-32); Calcium, Blood 8.3 mg/dL (8.5-10.1); Chloride, Blood 113 mmol/L (98-108); Creatinine, Blood 1.76 mg/dL (0.40-1.00); Glomerular Filtration Rate 37 (60-); Glucose, Blood 90 mg/dL (70-99); Magnesium, Blood 1.7 mg/dL (1.6-2.4); Phosphorus, Blood 2.6 mg/dL (2.5-4.9); Potassium, Blood 4.2 mmol/L (3.5-5.5); Sodium, Blood 141 mmol/L (136-145)
[2022-11-21 08:07] VITALS: BP 136/89
[2022-11-21] MEDS ORDERED: CEFP200 PO (10:45)
--- NOTE | 2022-11-21 11:46 | NUR ---
DISCHARGE PT DISCHARGING HOME, A/O X4, DISCHARGE INSTRUCTIONS, MEDICATION LIST AND FOLLOW UP APPOINTMENTS REVIEWED WITH PT. PT VERBALLY INDICATED UNDERSTANDING OF ALL INSTRUCTIONS RECEIVED.
[2022-11-22 17:08] LABS: ANTIMYELOPEROXIDASE (MPO) ABS <0.2 units (0.0-0.9); ANTIPROTEINASE 3 (PR-3) ABS <0.2 units (0.0-0.9); ATYPICAL PANCA <1:20 titer (Neg:<1:20); CYTOPLASMIC (C-ANCA) <1:20 titer (Neg:<1:20); PERINUCLEAR (P-ANCA) <1:20 titer (Neg:<1:20)
== END 2022-11-21 11:14 | disposition home or self-care (01) | DRG 689 ==
LOC: ER 17:48 → MEDS 17:49
PROVIDERS: Emergency Medicine; Family Medicine; Internal Medicine Nephrology; Physician Assistant; ADMIT Internal Medicine
DX: N39.0 Urinary tract infection, site not specified (principal); N18.6 End stage renal disease; D84.9 Immunodeficiency, unspecified; Z94.0 Kidney transplant status; Z94.4 Liver transplant status; E87.20 Acidosis, unspecified; E86.9 Volume depletion, unspecified; D63.1 Anemia in chronic kidney disease; E83.42 Hypomagnesemia; E83.39 Other disorders of phosphorus metabolism; N18.9 Chronic kidney disease, unspecified; B96.20 Unspecified Escherichia coli [E. coli] as the cause of diseases classified elsewhere; E87.6 Hypokalemia; K21.9 Gastro-esophageal reflux disease without esophagitis; F41.8 Other specified anxiety disorders; E86.0 Dehydration; E03.9 Hypothyroidism, unspecified; F10.11 Alcohol abuse, in remission; Z79.82 Long term (current) use of aspirin; Z79.890 Hormone replacement therapy; Z79.52 Long term (current) use of systemic steroids; Z79.899 Other long term (current) drug therapy; Z99.2 Dependence on renal dialysis; Z98.890 Other specified postprocedural states; Z87.891 Personal history of nicotine dependence
CPT/HCPCS: 0241U; 36415; 74176; 80053; 80069; 80197; 81001; 82248; 82550; 83516; 83520; 83605; 83735; 84100; 84443; 84484; 84550; 85014; 85018; 85025; 86037; 86038; 86644; 86645; 87040; 87077; 87086; 87186; 87507; 93005; 93010; 96361; 96374; 96375; 96376; 99284-25; A9270; G0378; J0696; J0780; J1200; J1644; J2405; J3010; J3475; J7030; J7120; J7507; J7512; J7517

== ENCOUNTER → 2023-07-28 | Outpatient (CLI) | payer BC ==
[~2023-07-28] MED LIST changes: +CEFP200 PO; +Methocarbamol500 MG PO; +PROGRAF0.510 PO; +PROZAC40 MG PO
[2023-07-28 15:44] LABS: Creatinine Urine 53.1 mg/dL (27.00-270.00); Microalbumin, Urine Quant. 31.2 mg/L (0.000-20.000); Protein, Urine Quantitative 15.4 mg/dL (0.0-11.9)
== END ==
LOC: LAB SHORT 12:22 → LAB 12:22
PROVIDERS: Internal Medicine Nephrology
DX: N18.30 Chronic kidney disease, stage 3 unspecified (principal); Z94.0 Kidney transplant status; N25.81 Secondary hyperparathyroidism of renal origin; E55.9 Vitamin D deficiency, unspecified; E78.00 Pure hypercholesterolemia, unspecified; R76.9 Abnormal immunological finding in serum, unspecified; R94.5 Abnormal results of liver function studies; G60.9 Hereditary and idiopathic neuropathy, unspecified; D63.1 Anemia in chronic kidney disease
CPT/HCPCS: 81050; 82043; 82570; 84156